=== PATIENT | female | born 1985 | race Caucasian/White ===

== ENCOUNTER → 2018-09-13 10:15 | Outpatient (CLI) | payer OTHER, SELFPAY ==
[2018-09-13 11:15] LABS: Add Manual Diff / Slide Review NO; Basophils Absolute Auto 100 /uL (0-100); Eosinophils Absolute Auto 400 /uL (0-450); Eosinophils Percent Auto 5.2 % (2-4); Hematocrit 35.6 % (36-46); Hemoglobin 12.1 g/dL (12.0-16.0); Lymphocytes Absolute Auto 2800 /uL (1100-4500); Lymphocytes Percent Auto 35.3 % (25-40); Mean Corpuscular Hemoglobin 29.5 PG (26-34); Mean Corpuscular Volume 86.8 fL (80-100); Monocytes Absolute Auto 500 /uL (0-900); Monocytes Percent Auto 6.9 % (3-14); Neutrophils Absolute Auto 4100 /uL (1500-7000); Neutrophils Percent Auto 51.6 % (50-75); Platelet Count 392 X10^3/uL (150-400); Red Cell Distribution Width 13.3 % (11.6-14.8); White Blood Cell Count 7.9 X10^3/uL (4.5-11.0)
[2018-09-13 11:39] LABS: Alanine Aminotransferase 15 IU/L (9-52); Albumin 4.1 g/dL (3.5-5.0); Albumin Globulin Ratio 1.3 (1.0-2.8); Alkaline Phosphatase 75 U/L (38-126); Aspartate Aminotransferase 17 IU/L (14-36); BUN Creatinine Ratio 13.3 (6-22); Bilirubin Total 0.5 mg/dL (0.2-1.3); Blood Urea Nitrogen 8 mg/dL (7-17); Carbon Dioxide 30 mmol/L (22-32); Chloride 103 mmol/L (98-107); Cholesterol 184 mg/dL (140-199); Estimated Glomerular Filt Rate > 60.0 mL/min (>60); Globulin 3.2 g/dL (1.7-4.1); Glucose 92 mg/dL (70-100); HDL Cholesterol 40 mg/dL (40-60); HEMOLYSIS < 15 (0-50); LDL Cholesterol Calculated 116 mg/dL (<100); Sodium 140 mmol/L (137-145); Total Protein 7.3 g/dL (6.3-8.2); Triglycerides 138 mg/dL (35-150)
[2018-09-13 12:08] LABS: TSH w/ Reflex to FT4 4.31 uIU/mL (0.47-4.68)
== END ==
PROVIDERS: PCP Nurse Practitioner; Visit Provider Nurse Practitioner
DX: F32.9 Major depressive disorder, single episode, unspecified (principal); F41.9 Anxiety disorder, unspecified; G47.00 Insomnia, unspecified; Z00.00 Encounter for general adult medical examination without abnormal findings
CPT/HCPCS: 36415; 80053; 80061; 84443; 85025

== ENCOUNTER → 2019-08-01 16:42 | Outpatient (CLI) | payer OTHER, SELFPAY | PROVIDERS: PCP Nurse Practitioner; Referring Provider Nurse Practitioner; Visit Provider Nurse Practitioner | DX: M79.602 Pain in left arm (principal); Z53.8 Procedure and treatment not carried out for other reasons; M79.89 Other specified soft tissue disorders; Q27.9 Congenital malformation of peripheral vascular system, unspecified ==

== ENCOUNTER 2020-01-08 15:15 | Outpatient (RCR) | payer OTHER, SELFPAY ==
--- NOTE | 2019-11-04 16:45 | PT.OIE ---
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 Physical Therapy Initial Evaluation PT-OP-A Visit Information Start: 11/04/19 17:43 Freq: Status: Active Protocol: Document 11/04/19 16:00 DCW (Rec: 11/04/19 17:57 [facility] [id number]) Out-Patient Physical Therapy Visit Information Visit Information Visit Type Initial Evaluation Visit Start Time 16:00 Visit Stop Time 16:35 Total Visit Minutes 35 Visit Number 1 Number of WRAP KNITTING MACHINE OPERATOR Visits 0 Evaluation Information Evaluation Date 11/04/19 PT-OP-B Current Condition Start: 11/04/19 17:43 Freq: Status: Active Protocol: Document 11/04/19 16:00 DCW (Rec: 11/04/19 17:57 [facility] [id number]) Current Condition History of Current Condition Onset Date several months Current Complaints Left arm pain, weakness History of Current Condition Pt is a 34 year old female reporting a several month history of left arm pain. 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 Pt reports the pain is worsening, and has started to limit her ability to participate in home and work activities. 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 Pt notes recent increase in dropping items and pain with gripping. Pt reports she has tried a bunch of different meds, none of which seem to help, cold makes it worse. Heat and compression help a little, but not really. Pt is seeing a vascular surgeon on , and she is hopeful this will give her some options to have her malformation corrected. Future Testing and Treatments Planned Vascular surgeon consult Treatment Goals Patient/Caregiver Goals I want to alleviate some of the pain, and improve the strength. 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 Patient Reported Progress Worse Patient Questionnaires Quick Dash- Upper Extremity Quick Dash UE Score 61.36% Quick Dash UE Impairment 60 to 79% Impaired (Score 60- 79) OP-PT Pain Assessment Pain Assessment Grid Paper Pain Assessment Grid Completed Yes Location Left Arm Intensity 8 Scale Used Numeric (0 - 10) Variations/Patterns 6-8/10 PT-OP-F Manual Assessment Start: 11/04/19 17:43 Freq: Status: Active Protocol: Document 11/04/19 16:00 DCW (Rec: 11/05/19 12:50 DCW [id number]) Manual Assessments Soft Tissue Assessment Soft Tissue Mobility Assessment Tenderness to palpation 3/4: Wincing and withdraw along entirety of arm from left elbow distally to MCP joints. Hypertonia in forearm. Edema and varicose veins along distal forearm Joint Mobility Assessment Joint Mobility Assessment Wrist stiffness secondary to pain PT-OP-J Posture/Palpation/Skin Start: 11/04/19 17:43 Freq: Status: Active Protocol: Document 11/04/19 16:00 DCW (Rec: 11/05/19 12:50 DCW [id number]) Skin Assessment Circumference Measurement 3 Location 5 cm Distal to Left wrist joint Measurement (Centimeters) 22.4 Comments 5 cm Distal to Right wrist joint = 22.0 2 Location 5 cm Proximal to Left wrist joint Measurement (Centimeters) 22.0 Comments 5 cm Proximal to Right wrist joint = 20.8 1 Location Left wrist joint Measurement (Centimeters) 17.7 Comments Right wrist joint = 16.5 PT-OP-K Range of Motion Start: 11/04/19 17:43 Freq: Status: Active Protocol: Document 11/04/19 16:00 DCW (Rec: 11/05/19 12:50 DCW [id number]) Elbow/Forearm Range of Motion Elbow/Forearm Left Active Pronation (degrees) 90 Supination (degrees) 30 Wrist Goniometric Range of Motion Wrist Right Flexion Active (degrees) 55 Extension Active (degrees) 60 Ulnar Deviation Active (degrees) 40 Radial Deviation Active (degrees) 25 Left Flexion Active (degrees) 30 Extension Active (degrees) 60 Ulnar Deviation Active (degrees) 30 Radial Deviation Active (degrees) 20 PT-OP-M Strength Start: 11/04/19 17:43 Freq: Status: Active Protocol: Document 11/04/19 16:00 DCW (Rec: 11/05/19 12:50 DCW [id number]) Wrist Strength Wrist Manual Muscle Testing Right Flexion (C7) 5 Normal Extension (C6) 5 Normal Ulnar Deviation 5 Normal Radial Deviation 5 Normal Left Flexion (C7) 3 Fair Extension (C6) 3 Fair Ulnar Deviation 3- Fair- Radial Deviation 3- Fair- Hand Trial Management Associate/Pinch Strength Hand Dominance Hand Dominance Right Hand Strength Right Trial Management Associate (lbs) 61.7 Comments 3-trial average (60 lbs, 65 lbs, 60 lbs). Left Trial Management Associate (lbs) 23.3 Comments 3-trial average (25 lbs, 25 lbs, 20 lbs). PT-OP-Q Treatments Start: 11/04/19 17:43 Freq: Status: Active Protocol: Document 11/04/19 16:00 DCW (Rec: 11/05/19 12:50 [facility] [id number]) Therapeutic Exercises Sitting Exercises 1 Sitting Exercise Name Thera Putty - flexion (full fist, individual) extension Side left PT-OP-T Assessment and Plan Start: 11/04/19 17:43 Freq: Status: Active Protocol: Document 11/04/19 16:00 DCW (Rec: 11/05/19 12:50 DCW [id number]) Physical Therapy Assessment Rehab Potential Rehabilitation Potential Fair Evaluation Complexity Number of Personal Factors/Comorbidities 3 or More Number of Body Systems Impaired 1-2 Clinical Presentation at Evaluation Evolving Impairments Impairments Activity Tolerance,Functional Activities,Functional Mobility ,Pain,ROM,Soft Tissue Mobility ,Strength Goals Three Impairment Pain of 8/10 causes inablity to participate in 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 LTG Duration 01/04/20 Two Impairment Left vp treasurer strength (23.3 lbs) significantly less than right (61.7 lbs) It Security Project Manager Goal (LTG) Increased left vp treasurer strength to a three trial average of > 45 lbs to ensure pt's ability to picj up household items without dropping them LTG Duration 01/04/20 One Impairment Pt does not have an appropriate home exercise program Short Term Goal (STG) Pt to be independent and ocmpliant with an appropriate HEP STG Duration 12/04/19 Assessment Summary Assessment Pt presents with left arm pain , edema, and decreased ROM secondary to a congenital venous malformation. Pt demonstrates weakness in both the wrist and her vp treasurer, although this may just be a secondary symptoms due to her pain. Pt is scheduled for a consultation with a vascular surgeon prior to her next PT visit, which may change the planned course of action, however for now skilled therapy should focus on decreasing muscle tone, improving wrist ROM, strengthening wrist and vp treasurer strength, and using modalities to improve pain levels. Physical Therapy Plan Frequency and Duration Frequency of Treatment 2x/Week Duration of Treatment 10 weeks Plan of Care Start Date 11/04/19 Plan of Care End Date 01/13/20 Therapeutic Interventions Therapeutic Interventions Home Exercise Program,Joint Mobilizations,Manual Therapy, Patient/Caregiver Education, Self-Care/Home Management,Soft Tissue Mobilization, Therapeutic Activities, Therapeutic Exercises Modalities Cold Pack/Ice Massage,Electric Stimulation,Hot Packs, Paraffin Bath,Ultrasound Next Visit Focus/Plan Next Note Type Treatment Note Next Visit Plan STM, flexibility, vp treasurer strengthening, Pariffin Bath
--- NOTE | 2019-11-04 16:45 | PT.OPPOC ---
Physical, Occupational & Speech Therapy At [facility] Current Diagnoses Stiffness of left wrist, not elsewhere classified (11/04/19) Muscle weakness (generalized) (11/04/19) Pain in left arm (11/04/19) Congenital malformation of circulatory system, unspecified (11/04/19) Visit Care Team Role Provider Type KAREN Ely Attending Provider Advanced Corpsman Primary Care Provider Referring Provider Specialty: Family Practice Address: [address] [place] [address], [facility] Email: [email or web address] Plan Of Care PT-OP-T Assessment and Plan Start: 11/04/19 17:43 Freq: Status: Active Protocol: Document 11/04/19 16:00 DCW (Rec: 11/05/19 12:50 DCW [id number]) Physical Therapy Assessment Rehab Potential Rehabilitation Potential Fair Evaluation Complexity Number of Personal Factors/Comorbidities 3 or More Number of Body Systems Impaired 1-2 Clinical Presentation at Evaluation Evolving Impairments Impairments Activity Tolerance,Functional Activities,Functional Mobility ,Pain,ROM,Soft Tissue Mobility ,Strength Goals Three Impairment Pain of 8/10 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 LTG Duration 01/04/20 Two Impairment Left car salter strength (23.3 lbs) significantly less than right (61.7 lbs) Sdv Pilot/Navigator/Dds Operator Goal (LTG) Increased left car salter strength to a three trial average of > 45 lbs to ensure pt's ability to picj up household items without dropping them LTG Duration 01/04/20 One Impairment Pt does not have an appropriate home exercise program Short Term Goal (STG) Pt to be independent and ocmpliant with an appropriate HEP STG Duration 12/04/19 Assessment Summary Assessment Pt presents with left arm pain , edema, and decreased ROM secondary to a congenital venous malformation. Pt demonstrates weakness in both the wrist and her car salter, although this may just be a secondary symptoms due to her pain. Pt is scheduled for a consultation with a vascular surgeon prior to her next PT visit, which may change the planned course of action, however for now skilled therapy should focus on decreasing muscle tone, improving wrist ROM, strengthening wrist and car salter strength, and using modalities to improve pain levels. Physical Therapy Plan Frequency and Duration Frequency of Treatment 2x/Week Duration of Treatment 10 weeks Plan of Care Start Date 11/04/19 Plan of Care End Date 01/13/20 Therapeutic Interventions Therapeutic Interventions Home Exercise Program,Joint Mobilizations,Manual Therapy, Patient/Caregiver Education, Self-Care/Home Management,Soft Tissue Mobilization, Therapeutic Activities, Therapeutic Exercises Modalities Cold Pack/Ice Massage,Electric Stimulation,Hot Packs, Paraffin Bath,Ultrasound Next Visit Focus/Plan Next Note Type Treatment Note Next Visit Plan STM, flexibility, car salter strengthening, Pariffin Bath Plan of Care Dates Plan of Care Start Date 11/04/19 Plan of Care End Date 01/13/20 Electronically Signed by: Harsha Eubanks, PT 11/05/19 2630 Please Sign and Return: I have reviewed this Plan of Care and certify that the skilled therapy services above are required to meet the patient?s needs. Physician Signature Date Printed Name and Credentials Clinical Instructor Signature Printed Name and Credentials
--- NOTE | 2019-11-08 08:18 | PT.OTN ---
Current Diagnoses Stiffness of left wrist, not elsewhere classified (11/08/19) Muscle weakness (generalized) (11/08/19) Pain in left arm (11/08/19) Congenital malformation of circulatory system, unspecified (11/08/19) Physical Therapy Treatment Note PT-OP-A Visit Information Start: 11/04/19 17:43 Freq: Status: Active Protocol: Document 11/08/19 07:29 SP (Rec: 11/08/19 09:16 SP [id number]) Out-Patient Physical Therapy Visit Information Visit Information Visit Type Treatment Note Visit Start Time 07:30 Visit Stop Time 08:18 Total Visit Minutes 48 Visit Number 2 Number of CLINIC CHARGE NURSE Visits 1 PT-OP-B Current Condition Start: 11/04/19 17:43 Freq: Status: Active Protocol: Document 11/04/19 16:00 DCW (Rec: 11/04/19 17:57 DCW [id number]) Current Condition History of Current Condition Onset Date several months Current Complaints Left arm pain, weakness History of Current Condition Pt is a 34 year old female reporting a several month history of left arm pain. 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 Pt reports the pain is worsening, and has started to limit her ability to participate in home and work activities. 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 Pt notes recent increase in dropping items and pain with gripping. Pt reports she has tried a bunch of different meds, none of which seem to help, cold makes it worse. Heat and compression help a little, but not really. Pt is seeing a vascular surgeon on , and she is hopeful this will give her some options to have her malformation corrected. Future Testing and Treatments Planned Vascular surgeon consult Treatment Goals Patient/Caregiver Goals I want to alleviate some of the pain, and improve the strength. PT-OP-C Subjective Start: 11/04/19 17:43 Freq: Status: Active Protocol: Document 11/08/19 07:29 SP (Rec: 11/08/19 09:16 SP [id number]) OP-PT Subjective Patient Comments Patient Comments Pt reported saw vascular surgeon and stated referring her to more specified pediatric vascular hand surgeon near [place]. Waiting to see when referral is complete to schedule further appt assessments. Pt reports 11/29 always. Surgeon provided her compression sleeve to wear. PT-OP-F Manual Assessment Start: 11/04/19 17:43 Freq: Status: Active Protocol: Document 11/04/19 16:00 DCW (Rec: 11/05/19 12:50 DCW [id number]) Manual Assessments Soft Tissue Assessment Soft Tissue Mobility Assessment Tenderness to palpation 3/4: Wincing and withdraw along entirety of arm from left elbow distally to MCP joints. Hypertonia in forearm. Edema and varicose veins along distal forearm Joint Mobility Assessment Joint Mobility Assessment Wrist stiffness secondary to pain PT-OP-J Posture/Palpation/Skin Start: 11/04/19 17:43 Freq: Status: Active Protocol: Document 11/04/19 16:00 DCW (Rec: 11/05/19 12:50 DCW [id number]) Skin Assessment Circumference Measurement 3 Location 5 cm Distal to Left wrist joint Measurement (Centimeters) 22.4 Comments 5 cm Distal to Right wrist joint = 22.0 2 Location 5 cm Proximal to Left wrist joint Measurement (Centimeters) 22.0 Comments 5 cm Proximal to Right wrist joint = 20.8 1 Location Left wrist joint Measurement (Centimeters) 17.7 Comments Right wrist joint = 16.5 PT-OP-K Range of Motion Start: 11/04/19 17:43 Freq: Status: Active Protocol: Document 11/04/19 16:00 DCW (Rec: 11/05/19 12:50 DCW [id number]) Elbow/Forearm Range of Motion Elbow/Forearm Left Active Pronation (degrees) 90 Supination (degrees) 30 Wrist Goniometric Range of Motion Wrist Right Flexion Active (degrees) 55 Extension Active (degrees) 60 Ulnar Deviation Active (degrees) 40 Radial Deviation Active (degrees) 25 Left Flexion Active (degrees) 30 Extension Active (degrees) 60 Ulnar Deviation Active (degrees) 30 Radial Deviation Active (degrees) 20 PT-OP-M Strength Start: 11/04/19 17:43 Freq: Status: Active Protocol: Document 11/04/19 16:00 DCW (Rec: 11/05/19 12:50 DCW [id number]) Wrist Strength Wrist Manual Muscle Testing Right Flexion (C7) 5 Normal Extension (C6) 5 Normal Ulnar Deviation 5 Normal Radial Deviation 5 Normal Left Flexion (C7) 3 Fair Extension (C6) 3 Fair Ulnar Deviation 3- Fair- Radial Deviation 3- Fair- Hand Helper Steel Fabrication/Pinch Strength Hand Dominance Hand Dominance Right Hand Strength Right Helper Steel Fabrication (lbs) 61.7 Comments 3-trial average (60 lbs, 65 lbs, 60 lbs). Left Helper Steel Fabrication (lbs) 23.3 Comments 3-trial average (25 lbs, 25 lbs, 20 lbs). PT-OP-Q Treatments Start: 11/04/19 17:43 Freq: Status: Active Protocol: Document 11/08/19 07:29 SP (Rec: 11/08/19 09:16 SP [id number]) Therapeutic Exercises Sitting Exercises AROM finger extension Sitting Exercise Name 1-5 MTP Side left Resistance AROM and rubber band Reps/Minutes all and individual finger. 1 Sitting Exercise Name Thera Putty - flexion (full fist, individual) extension Side left Manual Therapy Treatment Joint Mobilizations carpal, MTP, IT, DIP Joint L MTP 1-5 Direction AP, PA, rotation Grade I Body Position seated Comments gentle ROM PT-OP-R Modalities Start: 11/04/19 17:45 Freq: Status: Active Protocol: Document 11/08/19 07:29 SP (Rec: 11/08/19 09:16 SP [id number]) Paraffin Bath Treatment Left Hand Treatment Technique Dip-immersion Number Wax Layers (layers) 5 Duration (minutes) 8 Patient Tolerance Good PT-OP-T Assessment and Plan Start: 11/04/19 17:43 Freq: Status: Active Protocol: Document 11/08/19 07:29 SP (Rec: 11/08/19 09:16 SP [id number]) Physical Therapy Assessment Goals Three Impairment Pain of 8/10 causes inablity to 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 LTG Duration 01/04/20 Two Impairment Left green house manager strength (23.3 lbs) significantly less than right (61.7 lbs) Back Up Machine Operator Goal (LTG) Increased left green house manager strength to a three trial average of > 45 lbs to ensure pt's ability to picj up household items without dropping them LTG Duration 11/14/20 One Impairment Pt does not have an appropriate home exercise program Short Term Goal (STG) Pt to be independent and ocmpliant with an appropriate HEP STG Duration 12/04/19 Assessment Summary Assessment Reviewed HEP, initiated finger ext AROM and lumbrical AROM with no increase in pain. Pt reported carpal and MTP mobs felt good, no adverse pain. Pt responded well to parafin bath, feels nice. Physical Therapy Plan Frequency and Duration Frequency of Treatment 2x/Week Duration of Treatment 10 weeks Plan of Care Start Date 11/04/19 Plan of Care End Date 01/13/20 Therapeutic Interventions Therapeutic Interventions Home Exercise Program,Joint Mobilizations,Manual Therapy, Patient/Caregiver Education, Self-Care/Home Management,Soft Tissue Mobilization, Therapeutic Activities, Therapeutic Exercises Modalities Cold Pack/Ice Massage,Electric Stimulation,Hot Packs, Paraffin Bath,Ultrasound Next Visit Focus/Plan Next Note Type Treatment Note Next Visit Plan Assess response to last tx: manual, HEP review, parafin bath. Continue per PT POC: STM, flexibility, green house manager strengthening, Pariffin Bath
--- NOTE | 2019-11-12 16:21 | PT-OP ANOTE ---
No show on 11/12/19
--- NOTE | 2019-11-15 08:18 | PT.OTN ---
Current Diagnoses Stiffness of left wrist, not elsewhere classified (11/15/19) Muscle weakness (generalized) (11/15/19) Pain in left arm (11/15/19) Congenital malformation of circulatory system, unspecified (11/15/19) Physical Therapy Treatment Note PT-OP-A Visit Information Start: 11/04/19 17:43 Freq: Status: Active Protocol: Document 11/15/19 07:27 SP (Rec: 11/15/19 12:12 SP [id number]) Out-Patient Physical Therapy Visit Information Visit Information Visit Type Treatment Note Visit Start Time 07:30 Visit Stop Time 08:18 Total Visit Minutes 48 Visit Number 45 Number of QUAL RESEARCH MANAGER Visits 2 PT-OP-B Current Condition Start: 11/04/19 17:43 Freq: Status: Active Protocol: Document 11/04/19 16:00 DCW (Rec: 11/04/19 17:57 DCW [id number]) Current Condition History of Current Condition Onset Date several months Current Complaints Left arm pain, weakness History of Current Condition Pt is a 34 year old female reporting a several month history of left arm pain. 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 Pt reports the pain is worsening, and has started to limit her ability to participate in home and work activities. 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 Pt notes recent increase in dropping items and pain with gripping. Pt reports she has tried a bunch of different meds, none of which seem to help, cold makes it worse. Heat and compression help a little, but not really. Pt is seeing a vascular surgeon on , and she is hopeful this will give her some options to have her malformation corrected. Future Testing and Treatments Planned Vascular surgeon consult Treatment Goals Patient/Caregiver Goals I want to alleviate some of the pain, and improve the strength. PT-OP-C Subjective Start: 11/04/19 17:43 Freq: Status: Active Protocol: Document 11/15/19 07:27 SP (Rec: 11/15/19 12:12 SP [id number]) OP-PT Subjective Patient Comments Patient Comments Pt responded well to last tx, noted able to do dishes with little less pain and mobilty with grasping things. Patient Reported Progress Improving PT-OP-F Manual Assessment Start: 11/04/19 17:43 Freq: Status: Active Protocol: Document 11/04/19 16:00 DCW (Rec: 11/05/19 12:50 DCW [id number]) Manual Assessments Soft Tissue Assessment Soft Tissue Mobility Assessment Tenderness to palpation 3/4: Wincing and withdraw along entirety of arm from left elbow distally to MCP joints. Hypertonia in forearm. Edema and varicose veins along distal forearm Joint Mobility Assessment Joint Mobility Assessment Wrist stiffness secondary to pain PT-OP-J Posture/Palpation/Skin Start: 11/04/19 17:43 Freq: Status: Active Protocol: Document 11/04/19 16:00 DCW (Rec: 11/05/19 12:50 DCW [id number]) Skin Assessment Circumference Measurement 3 Location 5 cm Distal to Left wrist joint Measurement (Centimeters) 22.4 Comments 5 cm Distal to Right wrist joint = 22.0 2 Location 5 cm Proximal to Left wrist joint Measurement (Centimeters) 22.0 Comments 5 cm Proximal to Right wrist joint = 20.8 1 Location Left wrist joint Measurement (Centimeters) 17.7 Comments Right wrist joint = 16.5 PT-OP-K Range of Motion Start: 11/04/19 17:43 Freq: Status: Active Protocol: Document 11/04/19 16:00 DCW (Rec: 11/05/19 12:50 DCW [id number]) Elbow/Forearm Range of Motion Elbow/Forearm Left Active Pronation (degrees) 90 Supination (degrees) 30 Wrist Goniometric Range of Motion Wrist Right Flexion Active (degrees) 55 Extension Active (degrees) 60 Ulnar Deviation Active (degrees) 40 Radial Deviation Active (degrees) 25 Left Flexion Active (degrees) 30 Extension Active (degrees) 60 Ulnar Deviation Active (degrees) 30 Radial Deviation Active (degrees) 20 PT-OP-M Strength Start: 11/04/19 17:43 Freq: Status: Active Protocol: Document 11/04/19 16:00 DCW (Rec: 11/05/19 12:50 DCW [id number]) Wrist Strength Wrist Manual Muscle Testing Right Flexion (C7) 5 Normal Extension (C6) 5 Normal Ulnar Deviation 5 Normal Radial Deviation 5 Normal Left Flexion (C7) 3 Fair Extension (C6) 3 Fair Ulnar Deviation 3- Fair- Radial Deviation 3- Fair- Hand Title Examiner/Pinch Strength Hand Dominance Hand Dominance Right Hand Strength Right Title Examiner (lbs) 61.7 Comments 3-trial average (60 lbs, 65 lbs, 60 lbs). Left Title Examiner (lbs) 23.3 Comments 3-trial average (25 lbs, 25 lbs, 20 lbs). PT-OP-Q Treatments Start: 11/04/19 17:43 Freq: Status: Active Protocol: Document 11/15/19 07:27 SP (Rec: 11/15/19 12:12 SP [id number]) Therapeutic Exercises Sitting Exercises wrist flexion /ext stretch Reps/Minutes 20 x2 each direction Comments cued totolerant range and feel nice stretch benefits wrist flexion/ ext Resistance AROM Reps/Minutes x10 each direction Comments extension 2/10 posterior mid forearm, flexion 3-4/10 mid- prox forearm- roc Finger flexion Sitting Exercise Name MTP, IP, DIP 1-5 Side left Resistance AROM and rubber band Reps/Minutes x10 each AROM finger extension Sitting Exercise Name 1-5 MTP Side left Resistance AROM and rubber band Equipment Used x10 each Reps/Minutes all and individual finger. Manual Therapy Treatment Soft Tissue Mobilization MF glide forearm flex/ ext Body Location superficial glide forearm hand retrograde, CET/ CFT attachment Mobilization Type Cross-Friction,Myofascial Release,Sustained Pressure Intensity/Depth Superficial Body Position Sitting Comments MWM for self with other UE. Joint Mobilizations carpal, MTP, IT, DIP Joint L MTP 1-5, carpals, distal radius & ulna Direction AP, PA, rotation Grade I Body Position seated Comments gentle ROM PT-OP-R Modalities Start: 11/04/19 17:45 Freq: Status: Active Protocol: Document 11/15/19 07:27 SP (Rec: 11/15/19 12:12 SP [id number]) Paraffin Bath Treatment Left Hand Treatment Technique Dip-immersion Number Wax Layers (layers) 8 Duration (minutes) 8 Patient Tolerance Good PT-OP-T Assessment and Plan Start: 11/04/19 17:43 Freq: Status: Active Protocol: Document 11/15/19 07:27 SP (Rec: 11/15/19 12:12 SP [id number]) Physical Therapy Assessment Goals Three Impairment Pain of 8/10 causes inablity to participate 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 LTG Duration 01/04/20 Two Impairment Left ladder operator strength (23.3 lbs) significantly less than right (61.7 lbs) [facility] Goal (LTG) Increased left ladder operator strength to a three trial average of > 45 lbs to ensure pt's ability to picj up household items without dropping them LTG Duration 01/04/20 One Impairment Pt does not have an appropriate home exercise program Short Term Goal (STG) Pt to be independent and ocmpliant with an appropriate HEP STG Duration 12/04/19 Assessment Summary Assessment Pt reported little discomfort during wrist flexion, tiring during finger exercises but feels is helpful. Sensitive to pressure over forearm, gentle glides and education on self application if tolerant benefits. AROM wrist added today and DIP, IP increase AAROM wtih other UE assist. Pt is still working on referrals to hand specialist orthopedic and pediatric vascular surgeon for further assessment . QUAL RESEARCH MANAGER gave purple sheet to add more appts and suggested would be beneficial to have an appt with PT specialized in lymphedema Nydia here in clinic if unable to see primary PT, schedule full. PT feel is progressisng and seeing PT benefits. Physical Therapy Plan Frequency and Duration Frequency of Treatment 2x/Week Duration of Treatment 10 weeks Plan of Care Start Date 11/04/19 Plan of Care End Date 01/13/20 Therapeutic Interventions Therapeutic Interventions Home Exercise Program,Joint Mobilizations,Manual Therapy, Patient/Caregiver Education, Self-Care/Home Management,Soft Tissue Mobilization, Therapeutic Activities, Therapeutic Exercises Modalities Cold Pack/Ice Massage,Electric Stimulation,Hot Packs, Paraffin Bath,Ultrasound Next Visit Focus/Plan Next Note Type Treatment Note Next Visit Plan Assess response to last tx: manual, HEP review and added finger flexion TB and wrist flex/ ext and self manual if warants at home, parafin bath. Continue per PT POC: STM, flexibility, ladder operator strengthening, Pariffin Bath
--- NOTE | 2019-11-19 16:48 | PT.OTN ---
Current Diagnoses Stiffness of left wrist, not elsewhere classified (11/19/19) Muscle weakness (generalized) (11/19/19) Pain in left arm (11/19/19) Congenital malformation of circulatory system, unspecified (11/19/19) Physical Therapy Treatment Note PT-OP-A Visit Information Start: 11/04/19 17:43 Freq: Status: Active Protocol: Document 11/19/19 16:00 DCW (Rec: 11/19/19 16:48 DCW [id number]) Out-Patient Physical Therapy Visit Information Visit Information Visit Type Treatment Note Visit Start Time 16:00 Visit Stop Time 16:45 Total Visit Minutes 45 Visit Number 4 Number of RERECORDING MIXER Visits 0 Evaluation Information Evaluation Date 11/04/19 PT-OP-B Current Condition Start: 11/04/19 17:43 Freq: Status: Active Protocol: Document 11/04/19 16:00 DCW (Rec: 11/04/19 17:57 DCW [id number]) Current Condition History of Current Condition Onset Date several months Current Complaints Left arm pain, weakness History of Current Condition Pt is a 34 year old female reporting a several month history of left arm pain. 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 Pt reports the pain is worsening, and has started to limit her ability to participate in home and work activities. 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 Pt notes recent increase in dropping items and pain with gripping. Pt reports she has tried a bunch of different meds, none of which seem to help, cold makes it worse. Heat and compression help a little, but not really. Pt is seeing a vascular surgeon on , and she is hopeful this will give her some options to have her malformation corrected. Future Testing and Treatments Planned Vascular surgeon consult Treatment Goals Patient/Caregiver Goals I want to alleviate some of the pain, and improve the strength. PT-OP-C Subjective Start: 11/04/19 17:43 Freq: Status: Active Protocol: Document 11/19/19 16:00 DCW (Rec: 11/19/19 16:48 DCW [id number]) OP-PT Subjective Patient Comments Patient Comments Pt reports she isn't really feeling much change in strength and mobility in her hand/wrist. PT-OP-F Manual Assessment Start: 11/04/19 17:43 Freq: Status: Active Protocol: Document 11/04/19 16:00 DCW (Rec: 11/05/19 12:50 DCW [id number]) Manual Assessments Soft Tissue Assessment Soft Tissue Mobility Assessment Tenderness to palpation 3/4: Wincing and withdraw along entirety of arm from left elbow distally to MCP joints. Hypertonia in forearm. Edema and varicose veins along distal forearm Joint Mobility Assessment Joint Mobility Assessment Wrist stiffness secondary to pain PT-OP-J Posture/Palpation/Skin Start: 11/04/19 17:43 Freq: Status: Active Protocol: Document 11/04/19 16:00 DCW (Rec: 11/05/19 12:50 DCW [id number]) Skin Assessment Circumference Measurement 3 Location 5 cm Distal to Left wrist joint Measurement (Centimeters) 22.4 Comments 5 cm Distal to Right wrist joint = 22.0 2 Location 5 cm Proximal to Left wrist joint Measurement (Centimeters) 22.0 Comments 5 cm Proximal to Right wrist joint = 20.8 1 Location Left wrist joint Measurement (Centimeters) 17.7 Comments Right wrist joint = 16.5 PT-OP-K Range of Motion Start: 11/04/19 17:43 Freq: Status: Active Protocol: Document 11/04/19 16:00 DCW (Rec: 11/05/19 12:50 DCW [id number]) Elbow/Forearm Range of Motion Elbow/Forearm Left Active Pronation (degrees) 90 Supination (degrees) 30 Wrist Goniometric Range of Motion Wrist Right Flexion Active (degrees) 55 Extension Active (degrees) 60 Ulnar Deviation Active (degrees) 40 Radial Deviation Active (degrees) 25 Left Flexion Active (degrees) 30 Extension Active (degrees) 60 Ulnar Deviation Active (degrees) 30 Radial Deviation Active (degrees) 20 PT-OP-M Strength Start: 11/04/19 17:43 Freq: Status: Active Protocol: Document 11/04/19 16:00 DCW (Rec: 11/05/19 12:50 DCW [id number]) Wrist Strength Wrist Manual Muscle Testing Right Flexion (C7) 5 Normal Extension (C6) 5 Normal Ulnar Deviation 5 Normal Radial Deviation 5 Normal Left Flexion (C7) 3 Fair Extension (C6) 3 Fair Ulnar Deviation 3- Fair- Radial Deviation 3- Fair- Hand Car Repossessor/Pinch Strength Hand Dominance Hand Dominance Right Hand Strength Right Car Repossessor (lbs) 61.7 Comments 3-trial average (60 lbs, 65 lbs, 60 lbs). Left Car Repossessor (lbs) 23.3 Comments 3-trial average (25 lbs, 25 lbs, 20 lbs). PT-OP-Q Treatments Start: 11/04/19 17:43 Freq: Status: Active Protocol: Document 11/19/19 16:00 DCW (Rec: 11/19/19 16:48 DCW [id number]) Therapeutic Exercises Sitting Exercises 6 Sitting Exercise Name Ulnar/Radial Deviation Equipment Used Hammer 5 Sitting Exercise Name Supination/Pronation Equipment Used Hammer 4 Sitting Exercise Name Flexbar - Oscillation Resistance Red 3 Sitting Exercise Name Flexbar - Twist Resistance Red 2 Sitting Exercise Name Flexbar - Flexion Resistance Red Finger flexion Sitting Exercise Name Didgi-Flex Side left Resistance 5 lbs - Green Manual Therapy Treatment Joint Mobilizations carpal, MTP, IT, DIP Joint L MTP 1-5, carpals, distal radius & ulna Direction AP, PA, rotation Grade I Body Position seated Comments gentle ROM Manual Traction Carpal Details Carpal traction Body Position Sitting PT-OP-R Modalities Start: 11/04/19 17:45 Freq: Status: Active Protocol: Document 11/19/19 16:00 DCW (Rec: 11/19/19 16:48 DCW [id number]) Paraffin Bath Treatment Left Hand Treatment Technique Dip-immersion Number Wax Layers (layers) 5 Duration (minutes) 8 Patient Tolerance Good PT-OP-T Assessment and Plan Start: 11/04/19 17:43 Freq: Status: Active Protocol: Document 11/19/19 16:00 DCW (Rec: 11/19/19 16:48 DCW [id number]) Physical Therapy Assessment Goals Three Impairment Pain of 8/10 causes 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 LTG Duration 01/04/20 Two Impairment Left fire and explosion investigator strength (23.3 lbs) significantly less than right (61.7 lbs) Paper Folding Machine Operator Goal (LTG) Increased left fire and explosion investigator strength to a three trial average of > 45 lbs to ensure pt's ability to picj up household items without dropping them LTG Duration 01/04/20 One Impairment Pt does not have an appropriate home exercise program Short Term Goal (STG) Pt to be independent and ocmpliant with an appropriate HEP STG Duration 12/04/19 Assessment Summary Assessment Pt had some good results with manual joint mobs/traction, but overall unsure as of now how effective PT has been. Between waiting for appointment with Vascular surgeon, lack of progress, and high co-pay, pt unsure if she wants to continue with therapy as scheduled. Therapist and patient decided to cancel next appointment, however both feel it would be good to see therapist she is scheduled with next week who specializes in lymphedema to help with drainage. Physical Therapy Plan Frequency and Duration Frequency of Treatment 2x/Week Duration of Treatment 10 weeks Plan of Care Start Date 11/04/19 Plan of Care End Date 01/13/20 Therapeutic Interventions Therapeutic Interventions Home Exercise Program,Joint Mobilizations,Manual Therapy, Patient/Caregiver Education, Self-Care/Home Management,Soft Tissue Mobilization, Therapeutic Activities, Therapeutic Exercises Modalities Cold Pack/Ice Massage,Electric Stimulation,Hot Packs, Paraffin Bath,Ultrasound Next Visit Focus/Plan Next Note Type Treatment Note Next Visit Plan Assess response to last tx: manual, HEP review and added finger flexion TB and wrist flex/ ext and self manual if warants at home, parafin bath. Continue per PT POC: STM, flexibility, fire and explosion investigator strengthening, Pariffin Bath
--- NOTE | 2019-11-27 16:09 | PT.OTN ---
Current Diagnoses Stiffness of left wrist, not elsewhere classified (11/27/19) Muscle weakness (generalized) (11/27/19) Pain in left arm (11/27/19) Congenital malformation of circulatory system, unspecified (11/27/19) Physical Therapy Treatment Note PT-OP-A Visit Information Start: 11/04/19 17:43 Freq: Status: Active Protocol: Document 11/27/19 10:29 SAK (Rec: 11/27/19 11:15 SAK [id number]) Out-Patient Physical Therapy Visit Information Visit Information Visit Type Treatment Note Visit Start Time 10:30 Visit Stop Time 11:15 Total Visit Minutes 45 Visit Number 5 Number of ROUTER OPERATOR PIN Visits 0 Evaluation Information Evaluation Date 11/04/19 PT-OP-B Current Condition Start: 11/04/19 17:43 Freq: Status: Active Protocol: Document 11/04/19 16:00 DCW (Rec: 11/04/19 17:57 DCW [id number]) Current Condition History of Current Condition Onset Date several months Current Complaints Left arm pain, weakness History of Current Condition Pt is a 34 year old female reporting a several month history of left arm pain. 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 Pt reports the pain is worsening, and has started to limit her ability to participate in home and work activities. 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 Pt notes recent increase in dropping items and pain with gripping. Pt reports she has tried a bunch of different meds, none of which seem to help, cold makes it worse. Heat and compression help a little, but not really. Pt is seeing a vascular surgeon on , and she is hopeful this will give her some options to have her malformation corrected. Future Testing and Treatments Planned Vascular surgeon consult Treatment Goals Patient/Caregiver Goals I want to alleviate some of the pain, and improve the strength. PT-OP-C Subjective Start: 11/04/19 17:43 Freq: Status: Active Protocol: Document 11/27/19 10:29 SAK (Rec: 11/27/19 11:15 SAK [id number]) OP-PT Subjective Patient Comments Patient Comments Consult with vascular physician just prior to PT visit, going to have appointment to do contrast perfusion test, then make a follow-up appointment with physician. Has inflammation and blood clots in her arm per physician; part of what is making arm hurt. Recommended 81 mg per day aspirin. Also recommendation for compression sleeve fitting in [place]. UE symptoms started when she was 2 y/o and worsened when she hit puberty. 6 month history of increasing left UE swelling, which is variable, reports fairly good this am. Also reports fractured clavice on left when she was 8 y/o. PT-OP-F Manual Assessment Start: 11/04/19 17:43 Freq: Status: Active Protocol: Document 11/04/19 16:00 DCW (Rec: 11/05/19 12:50 DCW [id number]) Manual Assessments Soft Tissue Assessment Soft Tissue Mobility Assessment Tenderness to palpation 3/4: Wincing and withdraw along entirety of arm from left elbow distally to MCP joints. Hypertonia in forearm. Edema and varicose veins along distal forearm Joint Mobility Assessment Joint Mobility Assessment Wrist stiffness secondary to pain PT-OP-J Posture/Palpation/Skin Start: 11/04/19 17:43 Freq: Status: Active Protocol: Document 11/04/19 16:00 DCW (Rec: 11/05/19 12:50 DCW [id number]) Skin Assessment Circumference Measurement 3 Location 5 cm Distal to Left wrist joint Measurement (Centimeters) 22.4 Comments 5 cm Distal to Right wrist joint = 22.0 2 Location 5 cm Proximal to Left wrist joint Measurement (Centimeters) 22.0 Comments 5 cm Proximal to Right wrist joint = 20.8 1 Location Left wrist joint Measurement (Centimeters) 17.7 Comments Right wrist joint = 16.5 PT-OP-K Range of Motion Start: 11/04/19 17:43 Freq: Status: Active Protocol: Document 11/04/19 16:00 DCW (Rec: 11/05/19 12:50 DCW [id number]) Elbow/Forearm Range of Motion Elbow/Forearm Left Active Pronation (degrees) 90 Supination (degrees) 30 Wrist Goniometric Range of Motion Wrist Right Flexion Active (degrees) 55 Extension Active (degrees) 60 Ulnar Deviation Active (degrees) 40 Radial Deviation Active (degrees) 25 Left Flexion Active (degrees) 30 Extension Active (degrees) 60 Ulnar Deviation Active (degrees) 30 Radial Deviation Active (degrees) 20 PT-OP-M Strength Start: 11/04/19 17:43 Freq: Status: Active Protocol: Document 11/04/19 16:00 DCW (Rec: 11/05/19 12:50 DCW [id number]) Wrist Strength Wrist Manual Muscle Testing Right Flexion (C7) 5 Normal Extension (C6) 5 Normal Ulnar Deviation 5 Normal Radial Deviation 5 Normal Left Flexion (C7) 3 Fair Extension (C6) 3 Fair Ulnar Deviation 3- Fair- Radial Deviation 3- Fair- Hand Data Base Administrator/Pinch Strength Hand Dominance Hand Dominance Right Hand Strength Right Data Base Administrator (lbs) 61.7 Comments 3-trial average (60 lbs, 65 lbs, 60 lbs). Left Data Base Administrator (lbs) 23.3 Comments 3-trial average (25 lbs, 25 lbs, 20 lbs). PT-OP-N Lymphedema Start: 11/27/19 16:00 Freq: Status: Active Protocol: Document 11/27/19 10:29 WILDER (Rec: 11/27/19 16:05 [facility] [id number]) Lymphedema Measurements Upper Extremity Circumference Measurements Left Affected MCP 18 cm Wrist 18.3 cm 5 cm From Distal Crease 23.5 cm 10 cm From Distal Crease 26 cm 15 cm From Distal Crease 30 cm 20 cm From Distal Crease 30.4 cm 25 cm From Distal Crease 33.3 cm 30 cm From Distal Crease 36.9 cm 35 cm From Distal Crease 39.2 cm 40 cm From Distal Crease 40 cm Right Unaffected MCP 18.3 cm Wrist 17.9 cm 5 cm From Distal Crease 21.5 cm 10 cm From Distal Crease 24.8 cm 15 cm From Distal Crease 29.4 cm 20 cm From Distal Crease 31.1 cm 25 cm From Distal Crease 34.3 cm 30 cm From Distal Crease 37.9 cm 35 cm From Distal Crease 40.2 cm 40 cm From Distal Crease 42.2 cm PT-OP-Q Treatments Start: 11/04/19 17:43 Freq: Status: Active Protocol: Document 11/27/19 10:29 WILDER (Rec: 11/27/19 16:09 [facility] [id number]) Manual Therapy Treatment Taping 1 Body Location left forearm and hand Treatment Focus edema reduction Type of Tape Kinesio Tape Skin Inspection intact Comments 2 fan strips plus I strip to secure ends. Other Other Manual Treatments circumferential measurements ( see lymphedema section of note ) Fit with size E tubigrip from fingers to axilla, to be used over the top of current elbow length for increased gradient compression Self-Care/Home Management Treatment Education Patient Education Pain Management,Safety Other Education no excessive heat to left UE where compression during day, especially when doing exercises PT-OP-R Modalities Start: 11/04/19 17:45 Freq: Status: Active Protocol: Document 11/27/19 10:29 [facility] (Rec: 11/27/19 11:15 [facility] [id number]) Paraffin Bath Treatment Left Hand Treatment Technique Dip-immersion Number Wax Layers (layers) 5 Duration (minutes) 8 Patient Tolerance Good PT-OP-T Assessment and Plan Start: 11/04/19 17:43 Freq: Status: Active Protocol: Document 11/27/19 10:29 [facility] (Rec: 11/27/19 11:15 [facility] [id number]) Physical Therapy Assessment Goals Three Impairment Pain of 8/10 causes inablity to participate in job requirements as HYDROGENATION OPERATOR Residential Goal (LTG) Pt to demonstrate wrist strength of at least 4-/5 with pain no greater than 3/10 to ensure pt can fully partivipate in all job activities. LTG Duration 01/04/20 Two Impairment Left math and science division chair strength (23.3 lbs) significantly less than right (61.7 lbs) Run Boat Operator Goal (LTG) Increased left math and science division chair strength to a three trial average of > 45 lbs to ensure pt's ability to picj up household items without dropping them LTG Duration 01/04/20 One Impairment Pt does not have an appropriate home exercise program Short Term Goal (STG) Pt to be independent and ocmpliant with an appropriate HEP STG Duration 12/04/19 Assessment Summary Assessment Patient edema appears due to vascular insufficiency left hand and forearm, no edema in upper arm. No tissue fibrosis evident though patient has poor tolerance for palpation. Further vascular testing being scheduled but patient reports clots in her arm per physician, will be starting daily baby aspirin. Feel patient will benefit from use of compression sleeve for gradient compression (ordered by physician), possible lymphatic massage if approved by physician. Physical Therapy Plan Frequency and Duration Frequency of Treatment 2x/Week Duration of Treatment 10 weeks Plan of Care Start Date 11/04/19 Plan of Care End Date 01/13/20 Therapeutic Interventions Therapeutic Interventions Home Exercise Program,Joint Mobilizations,Manual Therapy, Patient/Caregiver Education, Self-Care/Home Management,Soft Tissue Mobilization, Therapeutic Activities, Therapeutic Exercises Modalities Cold Pack/Ice Massage,Electric Stimulation,Hot Packs, Paraffin Bath,Ultrasound Next Visit Focus/Plan Next Note Type Treatment Note Next Visit Plan Assess response to kinesiotape to left UE, increased compression with second layer of tubigrip and if any pain relief. See if patient has scheduled fitting for compression sleeve. Continue PT per POC, with continued emphasis on edema reduction as well, lymphatic massage if approved by physician.
--- NOTE | 2019-12-05 17:34 | PT.OTN ---
Current Diagnoses Stiffness of left wrist, not elsewhere classified (12/05/19) Muscle weakness (generalized) (12/05/19) Pain in left arm (12/05/19) Congenital malformation of circulatory system, unspecified (12/05/19) Physical Therapy Treatment Note PT-OP-A Visit Information Start: 11/04/19 17:43 Freq: Status: Active Protocol: Document 12/05/19 08:14 SAK (Rec: 12/05/19 08:48 SAK [id number]) Out-Patient Physical Therapy Visit Information Visit Information Visit Type Treatment Note Visit Start Time 08:15 Visit Stop Time 09:01 Total Visit Minutes 46 Visit Number 6 Number of ENVIRONMENTAL REMEDIATION SPECIALIST Visits 0 Evaluation Information Evaluation Date 11/04/19 PT-OP-B Current Condition Start: 11/04/19 17:43 Freq: Status: Active Protocol: Document 11/04/19 16:00 DCW (Rec: 11/04/19 17:57 DCW [id number]) Current Condition History of Current Condition Onset Date several months Current Complaints Left arm pain, weakness History of Current Condition Pt is a 34 year old female reporting a several month history of left arm pain. 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 Pt reports the pain is worsening, and has started to limit her ability to participate in home and work activities. 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 Pt notes recent increase in dropping items and pain with gripping. Pt reports she has tried a bunch of different meds, none of which seem to help, cold makes it worse. Heat and compression help a little, but not really. Pt is seeing a vascular surgeon on , and she is hopeful this will give her some options to have her malformation corrected. Future Testing and Treatments Planned Vascular surgeon consult Treatment Goals Patient/Caregiver Goals I want to alleviate some of the pain, and improve the strength. PT-OP-C Subjective Start: 11/04/19 17:43 Freq: Status: Active Protocol: Document 12/05/19 08:14 SAK (Rec: 12/05/19 08:48 SAK [id number]) OP-PT Subjective Patient Comments Patient Comments Perfusion test 12/16/19. States after wearing compression her arm was the smallest she has seen it in a long time and pain was decreased. January 02 appt to see surgeon to discuss options. Still working to get compression sleeve appointment scheduled. Not wearing Tubigrip this am due to knowing PT would work on her arm. Still getting used to wearing compression , helps but also uncomfortable. PT-OP-F Manual Assessment Start: 11/04/19 17:43 Freq: Status: Active Protocol: Document 11/04/19 16:00 DCW (Rec: 11/05/19 12:50 DCW [id number]) Manual Assessments Soft Tissue Assessment Soft Tissue Mobility Assessment Tenderness to palpation 3/4: Wincing and withdraw along entirety of arm from left elbow distally to MCP joints. Hypertonia in forearm. Edema and varicose veins along distal forearm Joint Mobility Assessment Joint Mobility Assessment Wrist stiffness secondary to pain PT-OP-J Posture/Palpation/Skin Start: 11/04/19 17:43 Freq: Status: Active Protocol: Document 11/04/19 16:00 DCW (Rec: 11/05/19 12:50 DCW [id number]) Skin Assessment Circumference Measurement 3 Location 5 cm Distal to Left wrist joint Measurement (Centimeters) 22.4 Comments 5 cm Distal to Right wrist joint = 22.0 2 Location 5 cm Proximal to Left wrist joint Measurement (Centimeters) 22.0 Comments 5 cm Proximal to Right wrist joint = 20.8 1 Location Left wrist joint Measurement (Centimeters) 17.7 Comments Right wrist joint = 16.5 PT-OP-K Range of Motion Start: 11/04/19 17:43 Freq: Status: Active Protocol: Document 11/04/19 16:00 DCW (Rec: 11/05/19 12:50 DCW [id number]) Elbow/Forearm Range of Motion Elbow/Forearm Left Active Pronation (degrees) 90 Supination (degrees) 30 Wrist Goniometric Range of Motion Wrist Right Flexion Active (degrees) 55 Extension Active (degrees) 60 Ulnar Deviation Active (degrees) 40 Radial Deviation Active (degrees) 25 Left Flexion Active (degrees) 30 Extension Active (degrees) 60 Ulnar Deviation Active (degrees) 30 Radial Deviation Active (degrees) 20 PT-OP-M Strength Start: 11/04/19 17:43 Freq: Status: Active Protocol: Document 11/04/19 16:00 DCW (Rec: 11/05/19 12:50 DCW [id number]) Wrist Strength Wrist Manual Muscle Testing Right Flexion (C7) 5 Normal Extension (C6) 5 Normal Ulnar Deviation 5 Normal Radial Deviation 5 Normal Left Flexion (C7) 3 Fair Extension (C6) 3 Fair Ulnar Deviation 3- Fair- Radial Deviation 3- Fair- Hand Ticket Dispatcher/Pinch Strength Hand Dominance Hand Dominance Right Hand Strength Right Ticket Dispatcher (lbs) 61.7 Comments 3-trial average (60 lbs, 65 lbs, 60 lbs). Left Ticket Dispatcher (lbs) 23.3 Comments 3-trial average (25 lbs, 25 lbs, 20 lbs). PT-OP-N Lymphedema Start: 11/27/19 16:00 Freq: Status: Active Protocol: Document 11/27/19 10:29 [facility] (Rec: 11/27/19 16:05 SAK [id number]) Lymphedema Measurements Upper Extremity Circumference Measurements Left Affected MCP 18 cm Wrist 18.3 cm 5 cm From Distal Crease 23.5 cm 10 cm From Distal Crease 26 cm 15 cm From Distal Crease 30 cm 20 cm From Distal Crease 30.4 cm 25 cm From Distal Crease 33.3 cm 30 cm From Distal Crease 36.9 cm 35 cm From Distal Crease 39.2 cm 40 cm From Distal Crease 40 cm Right Unaffected MCP 18.3 cm Wrist 17.9 cm 5 cm From Distal Crease 21.5 cm 10 cm From Distal Crease 24.8 cm 15 cm From Distal Crease 29.4 cm 20 cm From Distal Crease 31.1 cm 25 cm From Distal Crease 34.3 cm 30 cm From Distal Crease 37.9 cm 35 cm From Distal Crease 40.2 cm 40 cm From Distal Crease 42.2 cm PT-OP-Q Treatments Start: 11/04/19 17:43 Freq: Status: Active Protocol: Document 12/05/19 08:14 WILDER (Rec: 12/05/19 08:48 SAK [id number]) Therapeutic Exercises Sitting Exercises 6 Sitting Exercise Name Ulnar/Radial Deviation Equipment Used Hammer 5 Sitting Exercise Name pron/sup Equipment Used Hammer 4 Sitting Exercise Name Flexbar - Oscillation Resistance Red 3 Sitting Exercise Name Flexbar - Twist Resistance Red 2 Sitting Exercise Name Flexbar - Flexion Resistance Red wrist flexion/ ext Resistance AROM Reps/Minutes x10 each direction Finger flexion Sitting Exercise Name Didgi-Flex Side left Resistance 5 lbs - Green AROM finger extension Sitting Exercise Name 1-5 MTP Side left Resistance AROM and rubber band Equipment Used x10 each Reps/Minutes all and individual finger. Manual Therapy Treatment Taping 1 Body Location left forearm and hand Treatment Focus edema reduction Type of Tape Kinesio Tape Skin Inspection intact Comments 2 fan strips plus I strip to secure ends. Other Other Manual Treatments Not measured this date due to not wearing compression for 1 1/2 days. Will measure next session. 2nd set of Tubigrip cut size F MCP to elbow, Size E MCP to axilla. PT-OP-R Modalities Start: 11/04/19 17:45 Freq: Status: Active Protocol: Document 12/05/19 08:14 [facility] (Rec: 12/05/19 17:33 [facility] [id number]) Paraffin Bath Treatment Left Hand Treatment Technique Dip-immersion Number Wax Layers (layers) 8 Duration (minutes) 10 Patient Tolerance Good PT-OP-T Assessment and Plan Start: 11/04/19 17:43 Freq: Status: Active Protocol: Document 12/05/19 08:14 [facility] (Rec: 12/05/19 08:48 [facility] [id number]) Physical Therapy Assessment Goals Three Impairment Pain of 8/10 causes inablity to participate in 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 LTG Duration 01/04/20 Two Impairment Left paper bag press operator strength (23.3 lbs) significantly less than right (61.7 lbs) Prison Goal (LTG) Increased left paper bag press operator strength to a three trial average of > 45 lbs to ensure pt's ability to picj up household items without dropping them LTG Duration 01/04/20 One Impairment Pt does not have an appropriate home exercise program Short Term Goal (STG) Pt to be independent and ocmpliant with an appropriate HEP STG Duration 12/04/19 Assessment Summary Assessment Reduction in edema noted by patient with treatment, though compliance variable with Tubigrip due to some discomfort. Has further testing scheduled and is working to get appointment to obtain compression sleeve. Good compliance to HEP. Physical Therapy Plan Frequency and Duration Frequency of Treatment 2x/Week Duration of Treatment 10 weeks Plan of Care Start Date 11/04/19 Plan of Care End Date 01/13/20 Therapeutic Interventions Therapeutic Interventions Home Exercise Program,Joint Mobilizations,Manual Therapy, Patient/Caregiver Education, Self-Care/Home Management,Soft Tissue Mobilization, Therapeutic Activities, Therapeutic Exercises Modalities Cold Pack/Ice Massage,Electric Stimulation,Hot Packs, Paraffin Bath,Ultrasound Next Visit Focus/Plan Next Note Type Treatment Note Next Visit Plan Circumferential measurements, continue lymphedema management , strengthening and ROM left UE
--- NOTE | 2019-12-11 12:15 | PT.OTN ---
Current Diagnoses Stiffness of left wrist, not elsewhere classified (12/11/19) Muscle weakness (generalized) (12/11/19) Pain in left arm (12/11/19) Congenital malformation of circulatory system, unspecified (12/11/19) Physical Therapy Treatment Note PT-OP-A Visit Information Start: 11/04/19 17:43 Freq: Status: Active Protocol: Document 12/11/19 12:08 SAK (Rec: 12/11/19 12:15 SAK [id number]) Out-Patient Physical Therapy Visit Information Visit Information Visit Type Treatment Note Visit Start Time 11:20 Visit Stop Time 12:06 Total Visit Minutes 46 Visit Number 7 Number of INFORMATION SPECIALIST Visits 0 Evaluation Information Evaluation Date 11/04/19 PT-OP-B Current Condition Start: 11/04/19 17:43 Freq: Status: Active Protocol: Document 11/04/19 16:00 DCW (Rec: 11/04/19 17:57 DCW [id number]) Current Condition History of Current Condition Onset Date several months Current Complaints Left arm pain, weakness History of Current Condition Pt is a 34 year old female reporting a several month history of left arm pain. 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 Pt reports the pain is worsening, and has started to limit her ability to participate in home and work activities. 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 Pt notes recent increase in dropping items and pain with gripping. Pt reports she has tried a bunch of different meds, none of which seem to help, cold makes it worse. Heat and compression help a little, but not really. Pt is seeing a vascular surgeon on , and she is hopeful this will give her some options to have her malformation corrected. Future Testing and Treatments Planned Vascular surgeon consult Treatment Goals Patient/Caregiver Goals I want to alleviate some of the pain, and improve the strength. PT-OP-C Subjective Start: 11/04/19 17:43 Freq: Status: Active Protocol: Document 12/11/19 12:08 SAK (Rec: 12/11/19 12:15 SAK [id number]) OP-PT Subjective Patient Comments Patient Comments No new c/o. Has only been wearing one layer of Tubigrip, thinks it helps some. PT-OP-F Manual Assessment Start: 11/04/19 17:43 Freq: Status: Active Protocol: Document 11/04/19 16:00 DCW (Rec: 11/05/19 12:50 DCW [id number]) Manual Assessments Soft Tissue Assessment Soft Tissue Mobility Assessment Tenderness to palpation 3/4: Wincing and withdraw along entirety of arm from left elbow distally to MCP joints. Hypertonia in forearm. Edema and varicose veins along distal forearm Joint Mobility Assessment Joint Mobility Assessment Wrist stiffness secondary to pain PT-OP-J Posture/Palpation/Skin Start: 11/04/19 17:43 Freq: Status: Active Protocol: Document 11/04/19 16:00 DCW (Rec: 11/05/19 12:50 DCW [id number]) Skin Assessment Circumference Measurement 3 Location 5 cm Distal to Left wrist joint Measurement (Centimeters) 22.4 Comments 5 cm Distal to Right wrist joint = 22.0 2 Location 5 cm Proximal to Left wrist joint Measurement (Centimeters) 22.0 Comments 5 cm Proximal to Right wrist joint = 20.8 1 Location Left wrist joint Measurement (Centimeters) 17.7 Comments Right wrist joint = 16.5 PT-OP-K Range of Motion Start: 11/04/19 17:43 Freq: Status: Active Protocol: Document 11/04/19 16:00 DCW (Rec: 11/05/19 12:50 DCW [id number]) Elbow/Forearm Range of Motion Elbow/Forearm Left Active Pronation (degrees) 90 Supination (degrees) 30 Wrist Goniometric Range of Motion Wrist Right Flexion Active (degrees) 55 Extension Active (degrees) 60 Ulnar Deviation Active (degrees) 40 Radial Deviation Active (degrees) 25 Left Flexion Active (degrees) 30 Extension Active (degrees) 60 Ulnar Deviation Active (degrees) 30 Radial Deviation Active (degrees) 20 PT-OP-M Strength Start: 11/04/19 17:43 Freq: Status: Active Protocol: Document 11/04/19 16:00 DCW (Rec: 11/05/19 12:50 DCW [id number]) Wrist Strength Wrist Manual Muscle Testing Right Flexion (C7) 5 Normal Extension (C6) 5 Normal Ulnar Deviation 5 Normal Radial Deviation 5 Normal Left Flexion (C7) 3 Fair Extension (C6) 3 Fair Ulnar Deviation 3- Fair- Radial Deviation 3- Fair- Hand Loan Secretary/Pinch Strength Hand Dominance Hand Dominance Right Hand Strength Right Loan Secretary (lbs) 61.7 Comments 3-trial average (60 lbs, 65 lbs, 60 lbs). Left Loan Secretary (lbs) 23.3 Comments 3-trial average (25 lbs, 25 lbs, 20 lbs). PT-OP-N Lymphedema Start: 11/27/19 16:00 Freq: Status: Active Protocol: Document 11/27/19 10:29 [facility] (Rec: 11/27/19 16:05 [facility] [id number]) Lymphedema Measurements Upper Extremity Circumference Measurements Left Affected MCP 18 cm Wrist 18.3 cm 5 cm From Distal Crease 23.5 cm 10 cm From Distal Crease 26 cm 15 cm From Distal Crease 30 cm 20 cm From Distal Crease 30.4 cm 25 cm From Distal Crease 33.3 cm 30 cm From Distal Crease 36.9 cm 35 cm From Distal Crease 39.2 cm 40 cm From Distal Crease 40 cm Right Unaffected MCP 18.3 cm Wrist 17.9 cm 5 cm From Distal Crease 21.5 cm 10 cm From Distal Crease 24.8 cm 15 cm From Distal Crease 29.4 cm 20 cm From Distal Crease 31.1 cm 25 cm From Distal Crease 34.3 cm 30 cm From Distal Crease 37.9 cm 35 cm From Distal Crease 40.2 cm 40 cm From Distal Crease 42.2 cm PT-OP-Q Treatments Start: 11/04/19 17:43 Freq: Status: Active Protocol: Document 12/11/19 12:08 [facility] (Rec: 12/11/19 12:15 [facility] [id number]) Therapeutic Exercises Sitting Exercises 4 Sitting Exercise Name Flexbar - Oscillation Resistance Red 3 Sitting Exercise Name Flexbar - Twist Resistance Red 2 Sitting Exercise Name Flexbar - Flexion Resistance Red wrist flexion/ ext Resistance AROM Reps/Minutes x10 each direction Finger flexion Sitting Exercise Name Didgi-Flex Side left Resistance 5 lbs - Green Comments improved flex 5th digit noted Manual Therapy Treatment Taping 1 Body Location left forearm and hand Treatment Focus edema reduction Type of Tape Kinesio Tape Skin Inspection intact Comments 2 fan strips plus I strip to secure ends. Other Other Manual Treatments circumferential measurements left forearm Self-Care/Home Management Treatment Education Other Education wear the 2 layers of Tubigrip for better sequential compression Lymphedema Treatment Manual Lymphatic Drainage Location left UE Duration 20' Comments patient instruction for self- massage Patient Education Compression Garments importance of 2 layers for sequential compression Self Manual Lymphatic Drainage instructed PT-OP-R Modalities Start: 11/04/19 17:45 Freq: Status: Active Protocol: Document 12/11/19 12:08 [facility] (Rec: 12/11/19 12:15 [facility] [id number]) Paraffin Bath Treatment Left Hand Treatment Technique Dip-immersion Number Wax Layers (layers) 8 Duration (minutes) 10 Patient Tolerance Good PT-OP-T Assessment and Plan Start: 11/04/19 17:43 Freq: Status: Active Protocol: Document 12/11/19 12:08 [facility] (Rec: 12/11/19 12:15 [facility] [id number]) Physical Therapy Assessment Goals Three Impairment Pain of 8/10 causes inablity to participate in 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 LTG Duration 01/04/20 Two Impairment Left it analyst strength (23.3 lbs) significantly less than right (61.7 lbs) Internet Sales Associate Goal (LTG) Increased left it analyst strength to a three trial average of > 45 lbs to ensure pt's ability to picj up household items without dropping them LTG Duration 01/04/20 One Impairment Pt does not have an appropriate home exercise program Short Term Goal (STG) Pt to be independent and ocmpliant with an appropriate HEP STG Duration 12/04/19 Assessment Summary Assessment Patient measured after paraffin dip treatment, will need to measure prior next session. Measurements revealed increased circumference lower arm, decreased above elbow; feel due to lack of sequential compression with patient instructed to wear second layer Tubigrip hand to elbow. Patient demonstrated good understnding of self-MLD. Physical Therapy Plan Frequency and Duration Frequency of Treatment 2x/Week Duration of Treatment 10 weeks Plan of Care Start Date 11/04/19 Plan of Care End Date 01/13/20 Therapeutic Interventions Therapeutic Interventions Home Exercise Program,Joint Mobilizations,Manual Therapy, Patient/Caregiver Education, Self-Care/Home Management,Soft Tissue Mobilization, Therapeutic Activities, Therapeutic Exercises Modalities Cold Pack/Ice Massage,Electric Stimulation,Hot Packs, Paraffin Bath,Ultrasound Next Visit Focus/Plan Next Note Type Treatment Note Next Visit Plan Circumferential measurements prior to paraffin treatment, review self-MLD, continue lymphedema management, strengthening and ROM left UE.
--- NOTE | 2019-12-16 15:03 | PT-OP ANOTE ---
Pt did not show for today's appt, left message regarding missing and reminded of next appt .
--- NOTE | 2019-12-18 16:44 | PT.OTN ---
Current Diagnoses Stiffness of left wrist, not elsewhere classified (12/18/19) Muscle weakness (generalized) (12/18/19) Pain in left arm (12/18/19) Congenital malformation of circulatory system, unspecified (12/18/19) Physical Therapy Treatment Note PT-OP-A Visit Information Start: 11/04/19 17:43 Freq: Status: Active Protocol: Document 12/18/19 16:00 DCW (Rec: 12/18/19 16:44 DCW [id number]) Out-Patient Physical Therapy Visit Information Visit Information Visit Type Treatment Note Visit Start Time 16:00 Visit Stop Time 16:50 Total Visit Minutes 50 Visit Number 8 Number of COMMUNICATION SKILLS INSTRUCTOR Visits 0 Evaluation Information Evaluation Date 11/04/19 PT-OP-B Current Condition Start: 11/04/19 17:43 Freq: Status: Active Protocol: Document 11/04/19 16:00 DCW (Rec: 11/04/19 17:57 DCW [id number]) Current Condition History of Current Condition Onset Date several months Current Complaints Left arm pain, weakness History of Current Condition Pt is a 34 year old female reporting a several month history of left arm pain. 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 Pt reports the pain is worsening, and has started to limit her ability to participate in home and work activities. 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 Pt notes recent increase in dropping items and pain with gripping. Pt reports she has tried a bunch of different meds, none of which seem to help, cold makes it worse. Heat and compression help a little, but not really. Pt is seeing a vascular surgeon on , and she is hopeful this will give her some options to have her malformation corrected. Future Testing and Treatments Planned Vascular surgeon consult Treatment Goals Patient/Caregiver Goals I want to alleviate some of the pain, and improve the strength. PT-OP-C Subjective Start: 11/04/19 17:43 Freq: Status: Active Protocol: Document 12/18/19 16:00 DCW (Rec: 12/18/19 16:44 DCW [id number]) OP-PT Subjective Patient Comments Patient Comments Notes she is sore today, just kind of the same soreness as usual, somedays are just worse than others. Notes she had a Contrast MRI in [place] on Monday, but does not know any results yet. Does notes that when the K-tape comes off, it causes increased pain and pulls her skin off. PT-OP-F Manual Assessment Start: 11/04/19 17:43 Freq: Status: Active Protocol: Document 11/04/19 16:00 DCW (Rec: 11/05/19 12:50 DCW [id number]) Manual Assessments Soft Tissue Assessment Soft Tissue Mobility Assessment Tenderness to palpation 3/4: Wincing and withdraw along entirety of arm from left elbow distally to MCP joints. Hypertonia in forearm. Edema and varicose veins along distal forearm Joint Mobility Assessment Joint Mobility Assessment Wrist stiffness secondary to pain PT-OP-J Posture/Palpation/Skin Start: 11/04/19 17:43 Freq: Status: Active Protocol: Document 11/04/19 16:00 DCW (Rec: 11/05/19 12:50 DCW [id number]) Skin Assessment Circumference Measurement 3 Location 5 cm Distal to Left wrist joint Measurement (Centimeters) 22.4 Comments 5 cm Distal to Right wrist joint = 22.0 2 Location 5 cm Proximal to Left wrist joint Measurement (Centimeters) 22.0 Comments 5 cm Proximal to Right wrist joint = 20.8 1 Location Left wrist joint Measurement (Centimeters) 17.7 Comments Right wrist joint = 16.5 PT-OP-K Range of Motion Start: 11/04/19 17:43 Freq: Status: Active Protocol: Document 11/04/19 16:00 DCW (Rec: 11/05/19 12:50 DCW [id number]) Elbow/Forearm Range of Motion Elbow/Forearm Left Active Pronation (degrees) 90 Supination (degrees) 30 Wrist Goniometric Range of Motion Wrist Right Flexion Active (degrees) 55 Extension Active (degrees) 60 Ulnar Deviation Active (degrees) 40 Radial Deviation Active (degrees) 25 Left Flexion Active (degrees) 30 Extension Active (degrees) 60 Ulnar Deviation Active (degrees) 30 Radial Deviation Active (degrees) 20 PT-OP-M Strength Start: 11/04/19 17:43 Freq: Status: Active Protocol: Document 11/04/19 16:00 DCW (Rec: 11/05/19 12:50 DCW [id number]) Wrist Strength Wrist Manual Muscle Testing Right Flexion (C7) 5 Normal Extension (C6) 5 Normal Ulnar Deviation 5 Normal Radial Deviation 5 Normal Left Flexion (C7) 3 Fair Extension (C6) 3 Fair Ulnar Deviation 3- Fair- Radial Deviation 3- Fair- Hand Test Design Engineer/Pinch Strength Hand Dominance Hand Dominance Right Hand Strength Right Test Design Engineer (lbs) 61.7 Comments 3-trial average (60 lbs, 65 lbs, 60 lbs). Left Test Design Engineer (lbs) 23.3 Comments 3-trial average (25 lbs, 25 lbs, 20 lbs). PT-OP-N Lymphedema Start: 11/27/19 16:00 Freq: Status: Active Protocol: Document 11/27/19 10:29 [facility] (Rec: 11/27/19 16:05 SAK [id number]) Lymphedema Measurements Upper Extremity Circumference Measurements Left Affected MCP 18 cm Wrist 18.3 cm 5 cm From Distal Crease 23.5 cm 10 cm From Distal Crease 26 cm 15 cm From Distal Crease 30 cm 20 cm From Distal Crease 30.4 cm 25 cm From Distal Crease 33.3 cm 30 cm From Distal Crease 36.9 cm 35 cm From Distal Crease 39.2 cm 40 cm From Distal Crease 40 cm Right Unaffected MCP 18.3 cm Wrist 17.9 cm 5 cm From Distal Crease 21.5 cm 10 cm From Distal Crease 24.8 cm 15 cm From Distal Crease 29.4 cm 20 cm From Distal Crease 31.1 cm 25 cm From Distal Crease 34.3 cm 30 cm From Distal Crease 37.9 cm 35 cm From Distal Crease 40.2 cm 40 cm From Distal Crease 42.2 cm PT-OP-Q Treatments Start: 11/04/19 17:43 Freq: Status: Active Protocol: Document 12/18/19 16:00 DCW (Rec: 12/18/19 16:44 DCW [id number]) Therapeutic Exercises Sitting Exercises 6 Sitting Exercise Name Ulnar/Radial Deviation Equipment Used Hammer 5 Sitting Exercise Name pron/sup Equipment Used Hammer 4 Sitting Exercise Name Flexbar - Oscillation Resistance Red 3 Sitting Exercise Name Flexbar - Twist Resistance Red 2 Sitting Exercise Name Flexbar - Flexion Resistance Red Finger flexion Sitting Exercise Name Didgi-Flex Side left Resistance 5 lbs - Green Comments improved flex 5th digit noted Manual Therapy Treatment Joint Mobilizations carpal, MTP, IT, DIP Joint L MTP 1-5, carpals, distal radius & ulna Direction AP, PA, rotation Grade I Body Position seated Comments gentle ROM PT-OP-R Modalities Start: 11/04/19 17:45 Freq: Status: Active Protocol: Document 12/18/19 16:00 DCW (Rec: 12/18/19 16:44 DCW [id number]) Paraffin Bath Treatment Left Hand Treatment Technique Dip-immersion Number Wax Layers (layers) 8 Duration (minutes) 10 Patient Tolerance Good PT-OP-T Assessment and Plan Start: 11/04/19 17:43 Freq: Status: Active Protocol: Document 12/18/19 16:00 DCW (Rec: 12/18/19 16:44 DCW [id number]) Physical Therapy Assessment Goals Three Impairment Pain of 8/10 causes inablity to 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 LTG Duration 01/04/20 Two Impairment Left log yard manager strength (23.3 lbs) significantly less than right (61.7 lbs) Detention Goal (LTG) Increased left log yard manager strength to a three trial average of > 45 lbs to ensure pt's ability to picj up household items without dropping them LTG Duration 01/04/20 One Impairment Pt does not have an appropriate home exercise program Short Term Goal (STG) Pt to be independent and ocmpliant with an appropriate HEP STG Duration 12/04/19 Assessment Summary Assessment Pt overall showing some improvement with strength and mobility, but still has days of varying pain. Will hopefully continue to improve while also going through planning with vascular surgeon . Physical Therapy Plan Frequency and Duration Frequency of Treatment 2x/Week Duration of Treatment 10 weeks Plan of Care Start Date 11/04/19 Plan of Care End Date 01/13/20 Therapeutic Interventions Therapeutic Interventions Home Exercise Program,Joint Mobilizations,Manual Therapy, Patient/Caregiver Education, Self-Care/Home Management,Soft Tissue Mobilization, Therapeutic Activities, Therapeutic Exercises Modalities Cold Pack/Ice Massage,Electric Stimulation,Hot Packs, Paraffin Bath,Ultrasound Next Visit Focus/Plan Next Note Type Treatment Note Next Visit Plan Circumferential measurements prior to paraffin treatment, review self-MLD, continue lymphedema management, strengthening and ROM left UE.
--- NOTE | 2019-12-23 16:41 | PT.OTN ---
Current Diagnoses Stiffness of left wrist, not elsewhere classified (12/23/19) Muscle weakness (generalized) (12/23/19) Pain in left arm (12/23/19) Congenital malformation of circulatory system, unspecified (12/23/19) Physical Therapy Treatment Note PT-OP-A Visit Information Start: 11/04/19 17:43 Freq: Status: Active Protocol: Document 12/23/19 16:00 DCW (Rec: 12/23/19 16:41 DCW [id number]) Out-Patient Physical Therapy Visit Information Visit Information Visit Type Treatment Note Visit Start Time 16:00 Visit Stop Time 16:50 Total Visit Minutes 50 Visit Number 9 Number of SPECIAL EDUCATION SCIENCE TEACHER Visits 0 Evaluation Information Evaluation Date 11/04/19 PT-OP-B Current Condition Start: 11/04/19 17:43 Freq: Status: Active Protocol: Document 11/04/19 16:00 DCW (Rec: 11/04/19 17:57 DCW [id number]) Current Condition History of Current Condition Onset Date several months Current Complaints Left arm pain, weakness History of Current Condition Pt is a 34 year old female reporting a several month history of left arm pain. 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 Pt reports the pain is worsening, and has started to limit her ability to participate in home and work activities. 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 Pt notes recent increase in dropping items and pain with gripping. Pt reports she has tried a bunch of different meds, none of which seem to help, cold makes it worse. Heat and compression help a little, but not really. Pt is seeing a vascular surgeon on , and she is hopeful this will give her some options to have her malformation corrected. Future Testing and Treatments Planned Vascular surgeon consult Treatment Goals Patient/Caregiver Goals I want to alleviate some of the pain, and improve the strength. PT-OP-C Subjective Start: 11/04/19 17:43 Freq: Status: Active Protocol: Document 12/23/19 16:00 DCW (Rec: 12/23/19 16:41 DCW [id number]) OP-PT Subjective Patient Comments Patient Comments No change one way or the other . PT-OP-F Manual Assessment Start: 11/04/19 17:43 Freq: Status: Active Protocol: Document 11/04/19 16:00 DCW (Rec: 11/05/19 12:50 DCW [id number]) Manual Assessments Soft Tissue Assessment Soft Tissue Mobility Assessment Tenderness to palpation 3/4: Wincing and withdraw along entirety of arm from left elbow distally to MCP joints. Hypertonia in forearm. Edema and varicose veins along distal forearm Joint Mobility Assessment Joint Mobility Assessment Wrist stiffness secondary to pain PT-OP-J Posture/Palpation/Skin Start: 11/04/19 17:43 Freq: Status: Active Protocol: Document 11/04/19 16:00 DCW (Rec: 11/05/19 12:50 DCW [id number]) Skin Assessment Circumference Measurement 3 Location 5 cm Distal to Left wrist joint Measurement (Centimeters) 22.4 Comments 5 cm Distal to Right wrist joint = 22.0 2 Location 5 cm Proximal to Left wrist joint Measurement (Centimeters) 22.0 Comments 5 cm Proximal to Right wrist joint = 20.8 1 Location Left wrist joint Measurement (Centimeters) 17.7 Comments Right wrist joint = 16.5 PT-OP-K Range of Motion Start: 11/04/19 17:43 Freq: Status: Active Protocol: Document 11/04/19 16:00 DCW (Rec: 11/05/19 12:50 DCW [id number]) Elbow/Forearm Range of Motion Elbow/Forearm Left Active Pronation (degrees) 90 Supination (degrees) 30 Wrist Goniometric Range of Motion Wrist Right Flexion Active (degrees) 55 Extension Active (degrees) 60 Ulnar Deviation Active (degrees) 40 Radial Deviation Active (degrees) 25 Left Flexion Active (degrees) 30 Extension Active (degrees) 60 Ulnar Deviation Active (degrees) 30 Radial Deviation Active (degrees) 20 PT-OP-M Strength Start: 11/04/19 17:43 Freq: Status: Active Protocol: Document 11/04/19 16:00 DCW (Rec: 11/05/19 12:50 DCW [id number]) Wrist Strength Wrist Manual Muscle Testing Right Flexion (C7) 5 Normal Extension (C6) 5 Normal Ulnar Deviation 5 Normal Radial Deviation 5 Normal Left Flexion (C7) 3 Fair Extension (C6) 3 Fair Ulnar Deviation 3- Fair- Radial Deviation 3- Fair- Hand Beauty Specialist/Pinch Strength Hand Dominance Hand Dominance Right Hand Strength Right Beauty Specialist (lbs) 61.7 Comments 3-trial average (60 lbs, 65 lbs, 60 lbs). Left Beauty Specialist (lbs) 23.3 Comments 3-trial average (25 lbs, 25 lbs, 20 lbs). PT-OP-N Lymphedema Start: 11/27/19 16:00 Freq: Status: Active Protocol: Document 11/27/19 10:29 SAK (Rec: 11/27/19 16:05 SAK [id number]) Lymphedema Measurements Upper Extremity Circumference Measurements Left Affected MCP 18 cm Wrist 18.3 cm 5 cm From Distal Crease 23.5 cm 10 cm From Distal Crease 26 cm 15 cm From Distal Crease 30 cm 20 cm From Distal Crease 30.4 cm 25 cm From Distal Crease 33.3 cm 30 cm From Distal Crease 36.9 cm 35 cm From Distal Crease 39.2 cm 40 cm From Distal Crease 40 cm Right Unaffected MCP 18.3 cm Wrist 17.9 cm 5 cm From Distal Crease 21.5 cm 10 cm From Distal Crease 24.8 cm 15 cm From Distal Crease 29.4 cm 20 cm From Distal Crease 31.1 cm 25 cm From Distal Crease 34.3 cm 30 cm From Distal Crease 37.9 cm 35 cm From Distal Crease 40.2 cm 40 cm From Distal Crease 42.2 cm PT-OP-Q Treatments Start: 11/04/19 17:43 Freq: Status: Active Protocol: Document 12/23/19 16:00 DCW (Rec: 12/23/19 16:41 DCW [id number]) Therapeutic Exercises Sitting Exercises 6 Sitting Exercise Name Ulnar/Radial Deviation Equipment Used Hammer 5 Sitting Exercise Name pron/sup Equipment Used Hammer 4 Sitting Exercise Name Flexbar - Oscillation Resistance Red 3 Sitting Exercise Name Flexbar - Twist Resistance Red 2 Sitting Exercise Name Flexbar - Flexion Resistance Red Finger flexion Sitting Exercise Name Didgi-Flex Side left Resistance 5 lbs - Green Comments improved flex 5th digit noted 1 Sitting Exercise Name Finger flexion - weighted towel pull Side left Resistance 2#->7# Manual Therapy Treatment Joint Mobilizations carpal, MTP, IT, DIP Joint L MTP 1-5, carpals, distal radius & ulna Direction AP, PA, rotation Grade I Body Position seated Comments gentle ROM PT-OP-R Modalities Start: 11/04/19 17:45 Freq: Status: Active Protocol: Document 12/23/19 16:00 DCW (Rec: 12/23/19 16:41 DCW [id number]) Paraffin Bath Treatment Left Hand Treatment Technique Dip-immersion Number Wax Layers (layers) 8 Duration (minutes) 10 Patient Tolerance Good PT-OP-T Assessment and Plan Start: 11/04/19 17:43 Freq: Status: Active Protocol: Document 12/23/19 16:00 DCW (Rec: 12/23/19 16:41 DCW [id number]) Physical Therapy Assessment Goals Three Impairment Pain of 8/10 causes inablity to participate in 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 LTG Duration 01/04/20 Two Impairment Left fur blender strength (23.3 lbs) significantly less than right (61.7 lbs) Java Flex Developer Goal (LTG) Increased left fur blender strength to a three trial average of > 45 lbs to ensure pt's ability to picj up household items without dropping them LTG Duration 01/04/20 One Impairment Pt does not have an appropriate home exercise program Short Term Goal (STG) Pt to be independent and compliant with an appropriate HEP STG Duration 12/04/19 Assessment Summary Assessment Pt has been working on strengthening, reports improved fur blender and mobility, but pain continues with minimal change. Physical Therapy Plan Frequency and Duration Frequency of Treatment 2x/Week Duration of Treatment 10 weeks Plan of Care Start Date 11/04/19 Plan of Care End Date 01/13/20 Therapeutic Interventions Therapeutic Interventions Home Exercise Program,Joint Mobilizations,Manual Therapy, Patient/Caregiver Education, Self-Care/Home Management,Soft Tissue Mobilization, Therapeutic Activities, Therapeutic Exercises Modalities Cold Pack/Ice Massage,Electric Stimulation,Hot Packs, Paraffin Bath,Ultrasound Next Visit Focus/Plan Next Note Type Treatment Note Next Visit Plan Circumferential measurements prior to paraffin treatment, review self-MLD, continue lymphedema management, strengthening and ROM left UE.
--- NOTE | 2019-12-25 12:13 | PT.OTN ---
Current Diagnoses Stiffness of left wrist, not elsewhere classified (12/25/19) Muscle weakness (generalized) (12/25/19) Pain in left arm (12/25/19) Congenital malformation of circulatory system, unspecified (12/25/19) Physical Therapy Treatment Note PT-OP-A Visit Information Start: 11/04/19 17:43 Freq: Status: Active Protocol: Document 12/25/19 11:12 SAK (Rec: 12/25/19 11:20 SAK [id number]) Out-Patient Physical Therapy Visit Information Visit Information Visit Type Treatment Note Visit Start Time 11:14 Visit Stop Time 11:55 Total Visit Minutes 41 Visit Number 10 Number of ANGIOGRAPHY TECHNOLOGIST Visits 0 PT-OP-B Current Condition Start: 11/04/19 17:43 Freq: Status: Active Protocol: Document 11/04/19 16:00 DCW (Rec: 11/04/19 17:57 DCW [id number]) Current Condition History of Current Condition Onset Date several months Current Complaints Left arm pain, weakness History of Current Condition Pt is a 34 year old female reporting a several month history of left arm pain. 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 Pt reports the pain is worsening, and has started to limit her ability to participate in home and work activities. 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 Pt notes recent increase in dropping items and pain with gripping. Pt reports she has tried a bunch of different meds, none of which seem to help, cold makes it worse. Heat and compression help a little, but not really. Pt is seeing a vascular surgeon on , and she is hopeful this will give her some options to have her malformation corrected. Future Testing and Treatments Planned Vascular surgeon consult Treatment Goals Patient/Caregiver Goals I want to alleviate some of the pain, and improve the strength. PT-OP-C Subjective Start: 11/04/19 17:43 Freq: Status: Active Protocol: Document 12/25/19 11:12 SAK (Rec: 12/25/19 11:20 SAK [id number]) OP-PT Subjective Patient Comments Patient Comments 01/03/20 sees doctor for follow up after contrast MRI. Reports still trying to see if insurance will cover compression sleeve. Continues to wear double layer Tubigrip as well as chip bag for left UE compression; less pain with compression sometimes as low as 4/10, but increases as high as 6-8/10. PT-OP-F Manual Assessment Start: 11/04/19 17:43 Freq: Status: Active Protocol: Document 11/04/19 16:00 DCW (Rec: 11/05/19 12:50 DCW [id number]) Manual Assessments Soft Tissue Assessment Soft Tissue Mobility Assessment Tenderness to palpation 3/4: Wincing and withdraw along entirety of arm from left elbow distally to MCP joints. Hypertonia in forearm. Edema and varicose veins along distal forearm Joint Mobility Assessment Joint Mobility Assessment Wrist stiffness secondary to pain PT-OP-J Posture/Palpation/Skin Start: 11/04/19 17:43 Freq: Status: Active Protocol: Document 11/04/19 16:00 DCW (Rec: 11/05/19 12:50 DCW [id number]) Skin Assessment Circumference Measurement 3 Location 5 cm Distal to Left wrist joint Measurement (Centimeters) 22.4 Comments 5 cm Distal to Right wrist joint = 22.0 2 Location 5 cm Proximal to Left wrist joint Measurement (Centimeters) 22.0 Comments 5 cm Proximal to Right wrist joint = 20.8 1 Location Left wrist joint Measurement (Centimeters) 17.7 Comments Right wrist joint = 16.5 PT-OP-K Range of Motion Start: 11/04/19 17:43 Freq: Status: Active Protocol: Document 12/25/19 11:12 [facility] (Rec: 12/25/19 12:11 [facility] [id number]) Elbow/Forearm Range of Motion Elbow/Forearm Left Active Pronation (degrees) 90 Supination (degrees) 40 Wrist Goniometric Range of Motion Wrist Left Flexion Active (degrees) 40 Extension Active (degrees) 60 Ulnar Deviation Active (degrees) 35 Radial Deviation Active (degrees) 20 PT-OP-M Strength Start: 11/04/19 17:43 Freq: Status: Active Protocol: Document 12/25/19 11:12 SAK (Rec: 12/25/19 12:11 SAK [id number]) Wrist Strength Wrist Manual Muscle Testing Left Flexion (C7) 3+ Fair+ Extension (C6) 3+ Fair+ Ulnar Deviation 3 Fair Radial Deviation 3 Fair Hand Account Support Analyst/Pinch Strength Hand Strength Left Account Support Analyst (lbs) 28.0 Comments 3-trial average 42 lbs, 22 lbs , 20 lbs). PT-OP-N Lymphedema Start: 11/27/19 16:00 Freq: Status: Active Protocol: Document 11/27/19 10:29 [facility] (Rec: 11/27/19 16:05 SAK [id number]) Lymphedema Measurements Upper Extremity Circumference Measurements Left Affected MCP 18 cm Wrist 18.3 cm 5 cm From Distal Crease 23.5 cm 10 cm From Distal Crease 26 cm 15 cm From Distal Crease 30 cm 20 cm From Distal Crease 30.4 cm 25 cm From Distal Crease 33.3 cm 30 cm From Distal Crease 36.9 cm 35 cm From Distal Crease 39.2 cm 40 cm From Distal Crease 40 cm Right Unaffected MCP 18.3 cm Wrist 17.9 cm 5 cm From Distal Crease 21.5 cm 10 cm From Distal Crease 24.8 cm 15 cm From Distal Crease 29.4 cm 20 cm From Distal Crease 31.1 cm 25 cm From Distal Crease 34.3 cm 30 cm From Distal Crease 37.9 cm 35 cm From Distal Crease 40.2 cm 40 cm From Distal Crease 42.2 cm PT-OP-Q Treatments Start: 11/04/19 17:43 Freq: Status: Active Protocol: Document 12/23/19 16:00 DCW (Rec: 12/23/19 16:41 DCW [id number]) Therapeutic Exercises Sitting Exercises 6 Sitting Exercise Name Ulnar/Radial Deviation Equipment Used Hammer 5 Sitting Exercise Name pron/sup Equipment Used Hammer 4 Sitting Exercise Name Flexbar - Oscillation Resistance Red 3 Sitting Exercise Name Flexbar - Twist Resistance Red 2 Sitting Exercise Name Flexbar - Flexion Resistance Red Finger flexion Sitting Exercise Name Didgi-Flex Side left Resistance 5 lbs - Green Comments improved flex 5th digit noted 1 Sitting Exercise Name Finger flexion - weighted towel pull Side left Resistance 2#->7# Manual Therapy Treatment Joint Mobilizations carpal, MTP, IT, DIP Joint L MTP 1-5, carpals, distal radius & ulna Direction AP, PA, rotation Grade I Body Position seated Comments gentle ROM PT-OP-R Modalities Start: 11/04/19 17:45 Freq: Status: Active Protocol: Document 12/23/19 16:00 DCW (Rec: 12/23/19 16:41 DCW [id number]) Paraffin Bath Treatment Left Hand Treatment Technique Dip-immersion Number Wax Layers (layers) 8 Duration (minutes) 10 Patient Tolerance Good PT-OP-T Assessment and Plan Start: 11/04/19 17:43 Freq: Status: Active Protocol: Document 12/25/19 11:12 SAK (Rec: 12/25/19 11:20 SAK [id number]) Physical Therapy Assessment Goals Three Impairment Pain of 8/10 causes 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 12/25/19: goal progress but pain persists. LTG Duration 01/04/20 Two Impairment Left real estate closing coordinator strength (23.3 lbs) significantly less than right (61.7 lbs) Food And Beverage Assistant Manager Goal (LTG) Increased left real estate closing coordinator strength to a three trial average of > 45 lbs to ensure pt's ability to picj up household items without dropping them 12/25/19: three trial average real estate closing coordinator strength 28 lbs, goal progress with reports of decreased dropping of objects LTG Duration 01/04/20 One Impairment Pt does not have an appropriate home exercise program Short Term Goal (STG) Pt to be independent and ocmpliant with an appropriate HEP 12/25/19: patient compliant with HEP, continue to progress HEP but mostly met. STG Duration 12/04/19 Assessment Summary Assessment Improvement noted in real estate closing coordinator strength, wrist strength. Some decreased pain with use of Tubigrip, but would benefit more from use of compression sleeve; no appointment yet due to refusal of insurance company to cover a compression sleeve. Patient follow-up with physician 01/03/20. Physical Therapy Plan Frequency and Duration Frequency of Treatment 2x/Week Duration of Treatment 10 weeks Plan of Care Start Date 11/04/19 Plan of Care End Date 01/13/20 Therapeutic Interventions Therapeutic Interventions Home Exercise Program,Joint Mobilizations,Manual Therapy, Patient/Caregiver Education, Self-Care/Home Management,Soft Tissue Mobilization, Therapeutic Activities, Therapeutic Exercises Modalities Cold Pack/Ice Massage,Electric Stimulation,Hot Packs, Paraffin Bath,Ultrasound Next Visit Focus/Plan Next Note Type Treatment Note Next Visit Plan Continue PT per POC for lymphedema and pain management , strengthening, ROM. MLD.
--- NOTE | 2019-12-30 14:45 | PT-OP ANOTE ---
Pt did not show for today's appt, left a message regarding miss and reminded of next appt on 01/01/20 with SIRI Mistry.
--- NOTE | 2020-01-01 16:45 | PT.OTN ---
Current Diagnoses Stiffness of left wrist, not elsewhere classified (01/01/20) Muscle weakness (generalized) (01/01/20) Pain in left arm (01/01/20) Congenital malformation of circulatory system, unspecified (01/01/20) Physical Therapy Treatment Note PT-OP-A Visit Information Start: 11/04/19 17:43 Freq: Status: Active Protocol: Document 01/01/20 16:00 DCW (Rec: 01/01/20 16:45 DCW [id number]) Out-Patient Physical Therapy Visit Information Visit Information Visit Type Treatment Note Visit Start Time 16:00 Visit Stop Time 16:45 Total Visit Minutes 45 Visit Number 11 Number of BIAS MACHINE OPERATOR HELPER Visits 0 Evaluation Information Evaluation Date 11/04/19 PT-OP-B Current Condition Start: 11/04/19 17:43 Freq: Status: Active Protocol: Document 11/04/19 16:00 DCW (Rec: 11/04/19 17:57 DCW [id number]) Current Condition History of Current Condition Onset Date several months Current Complaints Left arm pain, weakness History of Current Condition Pt is a 34 year old female reporting a several month history of left arm pain. 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 Pt reports the pain is worsening, and has started to limit her ability to participate in home and work activities. 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 Pt notes recent increase in dropping items and pain with gripping. Pt reports she has tried a bunch of different meds, none of which seem to help, cold makes it worse. Heat and compression help a little, but not really. Pt is seeing a vascular surgeon on , and she is hopeful this will give her some options to have her malformation corrected. Future Testing and Treatments Planned Vascular surgeon consult Treatment Goals Patient/Caregiver Goals I want to alleviate some of the pain, and improve the strength. PT-OP-C Subjective Start: 11/04/19 17:43 Freq: Status: Active Protocol: Document 01/01/20 16:00 DCW (Rec: 01/01/20 16:45 DCW [id number]) OP-PT Subjective Patient Comments Patient Comments Pt reports overall she is about the same. Hopeful she will be able to get answers at her appointment in [place] Monday PT-OP-F Manual Assessment Start: 11/04/19 17:43 Freq: Status: Active Protocol: Document 11/04/19 16:00 DCW (Rec: 11/05/19 12:50 DCW [id number]) Manual Assessments Soft Tissue Assessment Soft Tissue Mobility Assessment Tenderness to palpation 3/4: Wincing and withdraw along entirety of arm from left elbow distally to MCP joints. Hypertonia in forearm. Edema and varicose veins along distal forearm Joint Mobility Assessment Joint Mobility Assessment Wrist stiffness secondary to pain PT-OP-J Posture/Palpation/Skin Start: 11/04/19 17:43 Freq: Status: Active Protocol: Document 11/04/19 16:00 DCW (Rec: 11/05/19 12:50 DCW [id number]) Skin Assessment Circumference Measurement 3 Location 5 cm Distal to Left wrist joint Measurement (Centimeters) 22.4 Comments 5 cm Distal to Right wrist joint = 22.0 2 Location 5 cm Proximal to Left wrist joint Measurement (Centimeters) 22.0 Comments 5 cm Proximal to Right wrist joint = 20.8 1 Location Left wrist joint Measurement (Centimeters) 17.7 Comments Right wrist joint = 16.5 PT-OP-K Range of Motion Start: 11/04/19 17:43 Freq: Status: Active Protocol: Document 12/25/19 11:[address] [facility] (Rec: 12/25/19 12:[address] [facility] [id number]) Elbow/Forearm Range of Motion Elbow/Forearm Left Active Pronation (degrees) 90 Supination (degrees) 40 Wrist Goniometric Range of Motion Wrist Left Flexion Active (degrees) 40 Extension Active (degrees) 60 Ulnar Deviation Active (degrees) 35 Radial Deviation Active (degrees) 20 PT-OP-M Strength Start: 11/04/19 17:43 Freq: Status: Active Protocol: Document 12/25/19 11:12 [facility] (Rec: 12/25/19 12:[address] [facility] [id number]) Wrist Strength Wrist Manual Muscle Testing Left Flexion (C7) 3+ Fair+ Extension (C6) 3+ Fair+ Ulnar Deviation 3 Fair Radial Deviation 3 Fair Hand Director [employer]/Pinch Strength Hand Strength Left [employer] (lbs) 28.0 Comments 3-trial average 42 lbs, 22 lbs , 20 lbs). PT-OP-N Lymphedema Start: 11/27/19 16:00 Freq: Status: Active Protocol: Document 11/27/19 10:29 [facility] (Rec: 11/27/19 16:05 [facility] [id number]) Lymphedema Measurements Upper Extremity Circumference Measurements Left Affected MCP 18 cm Wrist 18.3 cm 5 cm From Distal Crease 23.5 cm 10 cm From Distal Crease 26 cm 15 cm From Distal Crease 30 cm 20 cm From Distal Crease 30.4 cm 25 cm From Distal Crease 33.3 cm 30 cm From Distal Crease 36.9 cm 35 cm From Distal Crease 39.2 cm 40 cm From Distal Crease 40 cm Right Unaffected MCP 18.3 cm Wrist 17.9 cm 5 cm From Distal Crease 21.5 cm 10 cm From Distal Crease 24.8 cm 15 cm From Distal Crease 29.4 cm 20 cm From Distal Crease 31.1 cm 25 cm From Distal Crease 34.3 cm 30 cm From Distal Crease 37.9 cm 35 cm From Distal Crease 40.2 cm 40 cm From Distal Crease 42.2 cm PT-OP-Q Treatments Start: 11/04/19 17:43 Freq: Status: Active Protocol: Document 01/01/20 16:00 DCW (Rec: 01/01/20 16:45 DCW [id number]) Therapeutic Exercises Sitting Exercises 6 Sitting Exercise Name Ulnar/Radial Deviation Equipment Used Hammer 5 Sitting Exercise Name pron/sup Equipment Used Hammer 4 Sitting Exercise Name Flexbar - Oscillation Resistance Red 3 Sitting Exercise Name Flexbar - Twist Resistance Red 2 Sitting Exercise Name Flexbar - Flexion Resistance Red Finger flexion Sitting Exercise Name Didgi-Flex Side left Resistance 5 lbs - Green Comments improved flex 5th digit noted Manual Therapy Treatment Joint Mobilizations carpal, MTP, IT, DIP Joint L MTP 1-5, carpals, distal radius & ulna Direction AP, PA, rotation Grade III Body Position seated Comments gentle ROM PT-OP-R Modalities Start: 11/04/19 17:45 Freq: Status: Active Protocol: Document 01/01/20 16:00 DCW (Rec: 01/01/20 16:45 DCW [id number]) Paraffin Bath Treatment Left Hand Treatment Technique Dip-immersion Number Wax Layers (layers) 8 Duration (minutes) 10 Patient Tolerance Good PT-OP-T Assessment and Plan Start: 11/04/19 17:43 Freq: Status: Active Protocol: Document 01/01/20 16:00 DCW (Rec: 01/01/20 16:45 DCW [id number]) Physical Therapy Assessment Goals Three Impairment Pain of 8/10 causes inablity to participate in 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 12/25/19: goal progress but pain persists. LTG Duration 01/04/20 Two Impairment Left primary montessori teacher strength (23.3 lbs) significantly less than right (61.7 lbs) Knot Cutter Goal (LTG) Increased left primary montessori teacher strength to a three trial average of > 45 lbs to ensure pt's ability to picj up household items without dropping them 12/25/19: three trial average primary montessori teacher strength 28 lbs, goal progress with reports of decreased dropping of objects LTG Duration 01/04/20 One Impairment Pt does not have an appropriate home exercise program Short Term Goal (STG) Pt to be independent and compliant with an appropriate HEP 12/25/19: patient compliant with HEP, continue to progress HEP but mostly met. STG Duration 12/04/19 Assessment Summary Assessment Pt still largely unchanged with subjective pain, has some reports of noticing improved primary montessori teacher strength. Physical Therapy Plan Frequency and Duration Frequency of Treatment 2x/Week Duration of Treatment 10 weeks Plan of Care Start Date 11/04/19 Plan of Care End Date 01/13/20 Therapeutic Interventions Therapeutic Interventions Home Exercise Program,Joint Mobilizations,Manual Therapy, Patient/Caregiver Education, Self-Care/Home Management,Soft Tissue Mobilization, Therapeutic Activities, Therapeutic Exercises Modalities Cold Pack/Ice Massage,Electric Stimulation,Hot Packs, Paraffin Bath,Ultrasound Next Visit Focus/Plan Next Note Type Treatment Note Next Visit Plan Continue PT per POC for lymphedema and pain management , strengthening, ROM. MLD.
--- NOTE | 2020-01-06 16:42 | PT.OTN ---
Current Diagnoses Stiffness of left wrist, not elsewhere classified (01/06/20) Muscle weakness (generalized) (01/06/20) Pain in left arm (01/06/20) Congenital malformation of circulatory system, unspecified (01/06/20) Physical Therapy Treatment Note PT-OP-A Visit Information Start: 11/04/19 17:43 Freq: Status: Active Protocol: Document 01/06/20 16:00 DCW (Rec: 01/06/20 16:42 DCW [id number]) Out-Patient Physical Therapy Visit Information Visit Information Visit Type Treatment Note Visit Start Time 16:00 Visit Stop Time 16:45 Total Visit Minutes 45 Visit Number 12 Number of METAL TESTER Visits 0 Evaluation Information Evaluation Date 11/04/19 PT-OP-B Current Condition Start: 11/04/19 17:43 Freq: Status: Active Protocol: Document 11/04/19 16:00 DCW (Rec: 11/04/19 17:57 DCW [id number]) Current Condition History of Current Condition Onset Date several months Current Complaints Left arm pain, weakness History of Current Condition Pt is a 34 year old female reporting a several month history of left arm pain. 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 Pt reports the pain is worsening, and has started to limit her ability to participate in home and work activities. 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 Pt notes recent increase in dropping items and pain with gripping. Pt reports she has tried a bunch of different meds, none of which seem to help, cold makes it worse. Heat and compression help a little, but not really. Pt is seeing a vascular surgeon on , and she is hopeful this will give her some options to have her malformation corrected. Future Testing and Treatments Planned Vascular surgeon consult Treatment Goals Patient/Caregiver Goals I want to alleviate some of the pain, and improve the strength. PT-OP-C Subjective Start: 11/04/19 17:43 Freq: Status: Active Protocol: Document 01/06/20 16:00 DCW (Rec: 01/06/20 16:42 DCW [id number]) OP-PT Subjective Patient Comments Patient Comments Pt reports the outcome of her appointment down in [place] is that she is going to have alcohol injection to try to shrink the veins. Did have an appointment for this week, but she just got a call to say they were closing for two weeks. PT-OP-F Manual Assessment Start: 11/04/19 17:43 Freq: Status: Active Protocol: Document 11/04/19 16:00 DCW (Rec: 11/05/19 12:50 DCW [id number]) Manual Assessments Soft Tissue Assessment Soft Tissue Mobility Assessment Tenderness to palpation 3/4: Wincing and withdraw along entirety of arm from left elbow distally to MCP joints. Hypertonia in forearm. Edema and varicose veins along distal forearm Joint Mobility Assessment Joint Mobility Assessment Wrist stiffness secondary to pain PT-OP-J Posture/Palpation/Skin Start: 11/04/19 17:43 Freq: Status: Active Protocol: Document 11/04/19 16:00 DCW (Rec: 11/05/19 12:50 DCW [id number]) Skin Assessment Circumference Measurement 3 Location 5 cm Distal to Left wrist joint Measurement (Centimeters) 22.4 Comments 5 cm Distal to Right wrist joint = 22.0 2 Location 5 cm Proximal to Left wrist joint Measurement (Centimeters) 22.0 Comments 5 cm Proximal to Right wrist joint = 20.8 1 Location Left wrist joint Measurement (Centimeters) 17.7 Comments Right wrist joint = 16.5 PT-OP-K Range of Motion Start: 11/04/19 17:43 Freq: Status: Active Protocol: Document 12/25/19 11:12 [facility] (Rec: 12/25/19 12:11 [facility] [id number]) Elbow/Forearm Range of Motion Elbow/Forearm Left Active Pronation (degrees) 90 Supination (degrees) 40 Wrist Goniometric Range of Motion Wrist Left Flexion Active (degrees) 40 Extension Active (degrees) 60 Ulnar Deviation Active (degrees) 35 Radial Deviation Active (degrees) 20 PT-OP-M Strength Start: 11/04/19 17:43 Freq: Status: Active Protocol: Document 12/25/19 11:12 [facility] (Rec: 12/25/19 12:11 [facility] [id number]) Wrist Strength Wrist Manual Muscle Testing Left Flexion (C7) 3+ Fair+ Extension (C6) 3+ Fair+ Ulnar Deviation 3 Fair Radial Deviation 3 Fair Hand Fishing Manager/Pinch Strength Hand Strength Left Fishing Manager (lbs) 28.0 Comments 3-trial average 42 lbs, 22 lbs , 20 lbs). PT-OP-N Lymphedema Start: 11/27/19 16:00 Freq: Status: Active Protocol: Document 11/27/19 10:29 [facility] (Rec: 11/27/19 16:05 [facility]AK [id number]) Lymphedema Measurements Upper Extremity Circumference Measurements Left Affected MCP 18 cm Wrist 18.3 cm 5 cm From Distal Crease 23.5 cm 10 cm From Distal Crease 26 cm 15 cm From Distal Crease 30 cm 20 cm From Distal Crease 30.4 cm 25 cm From Distal Crease 33.3 cm 30 cm From Distal Crease 36.9 cm 35 cm From Distal Crease 39.2 cm 40 cm From Distal Crease 40 cm Right Unaffected MCP 18.3 cm Wrist 17.9 cm 5 cm From Distal Crease 21.5 cm 10 cm From Distal Crease 24.8 cm 15 cm From Distal Crease 29.4 cm 20 cm From Distal Crease 31.1 cm 25 cm From Distal Crease 34.3 cm 30 cm From Distal Crease 37.9 cm 35 cm From Distal Crease 40.2 cm 40 cm From Distal Crease 42.2 cm PT-OP-Q Treatments Start: 11/04/19 17:43 Freq: Status: Active Protocol: Document 01/06/20 16:00 DCW (Rec: 01/06/20 16:42 DCW [id number]) Therapeutic Exercises Sitting Exercises 6 Sitting Exercise Name Ulnar/Radial Deviation Equipment Used Hammer 5 Sitting Exercise Name pron/sup Equipment Used Hammer 4 Sitting Exercise Name Flexbar - Oscillation Resistance Red 3 Sitting Exercise Name Flexbar - Twist Resistance Red 2 Sitting Exercise Name Flexbar - Flexion Resistance Red Finger flexion Sitting Exercise Name Didgi-Flex Side left Resistance 5 lbs - Green Comments improved flex 5th digit noted Manual Therapy Treatment Soft Tissue Mobilization MF glide forearm flex/ ext Body Location superficial glide forearm hand retrograde, CET/ CFT attachment Mobilization Type Cross-Friction,Myofascial Release,Sustained Pressure Intensity/Depth Superficial Body Position Sitting Joint Mobilizations carpal, MTP, IT, DIP Joint L MTP 1-5, carpals, distal radius & ulna Direction AP, PA, rotation Grade III Body Position seated Comments gentle ROM Manual Traction Carpal Details Carpal traction Body Position Sitting PT-OP-R Modalities Start: 11/04/19 17:45 Freq: Status: Active Protocol: Document 01/06/20 16:00 DCW (Rec: 01/06/20 16:42 DCW [id number]) Paraffin Bath Treatment Left Hand Treatment Technique Dip-immersion Number Wax Layers (layers) 8 Duration (minutes) 10 Patient Tolerance Good PT-OP-T Assessment and Plan Start: 11/04/19 17:43 Freq: Status: Active Protocol: Document 01/06/20 16:00 DCW (Rec: 01/06/20 16:42 DCW [id number]) Physical Therapy Assessment Impairments Impairments Activity Tolerance,Functional Activities,Functional Mobility ,Pain,ROM,Soft Tissue Mobility ,Strength Goals Three Impairment Pain of 8/10 causes inablity to 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 12/25/19: goal progress but pain persists. LTG Duration 01/04/20 Two Impairment Left dowel setting machine operator strength (23.3 lbs) significantly less than right (61.7 lbs) Prison Goal (LTG) Increased left dowel setting machine operator strength to a three trial average of > 45 lbs to ensure pt's ability to picj up household items without dropping them 12/25/19: three trial average dowel setting machine operator strength 28 lbs, goal progress with reports of decreased dropping of objects LTG Duration 01/04/20 One Impairment Pt does not have an appropriate home exercise program Short Term Goal (STG) Pt to be independent and ocmpliant with an appropriate HEP 12/25/19: patient compliant with HEP, continue to progress HEP but mostly met. STG Duration 12/04/19 Assessment Summary Assessment Pt more optimistic now with a plan in place for injections and a compression sleeve. Would like to continue with her last scheduled visit with PT, and then see how she does without PT for a few weeks prior to actually discharging. Physical Therapy Plan Frequency and Duration Frequency of Treatment 2x/Week Duration of Treatment 10 weeks Plan of Care Start Date 11/04/19 Plan of Care End Date 01/13/20 Therapeutic Interventions Therapeutic Interventions Home Exercise Program,Joint Mobilizations,Manual Therapy, Patient/Caregiver Education, Self-Care/Home Management,Soft Tissue Mobilization, Therapeutic Activities, Therapeutic Exercises Modalities Cold Pack/Ice Massage,Electric Stimulation,Hot Packs, Paraffin Bath,Ultrasound Next Visit Focus/Plan Next Note Type Treatment Note Next Visit Plan Continue PT per POC for lymphedema and pain management , strengthening, ROM. MLD.
--- NOTE | 2020-01-08 16:23 | PT.OTN ---
Current Diagnoses Stiffness of left wrist, not elsewhere classified (01/08/20) Muscle weakness (generalized) (01/08/20) Pain in left arm (01/08/20) Congenital malformation of circulatory system, unspecified (01/08/20) Physical Therapy Treatment Note PT-OP-A Visit Information Start: 11/04/19 17:43 Freq: Status: Active Protocol: Document 01/08/20 15:16 SAK (Rec: 01/08/20 15:30 SAK [id number]) Out-Patient Physical Therapy Visit Information Visit Information Visit Type Treatment Note Visit Start Time 15:15 Visit Stop Time 16:06 Total Visit Minutes 51 Visit Number 13 Number of ASSISTANT IMPORT MANAGER Visits 0 Evaluation Information Evaluation Date 11/04/19 PT-OP-B Current Condition Start: 11/04/19 17:43 Freq: Status: Active Protocol: Document 11/04/19 16:00 DCW (Rec: 11/04/19 17:57 DCW [id number]) Current Condition History of Current Condition Onset Date several months Current Complaints Left arm pain, weakness History of Current Condition Pt is a 34 year old female reporting a several month history of left arm pain. 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 Pt reports the pain is worsening, and has started to limit her ability to participate in home and work activities. 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 Pt notes recent increase in dropping items and pain with gripping. Pt reports she has tried a bunch of different meds, none of which seem to help, cold makes it worse. Heat and compression help a little, but not really. Pt is seeing a vascular surgeon on , and she is hopeful this will give her some options to have her malformation corrected. Future Testing and Treatments Planned Vascular surgeon consult Treatment Goals Patient/Caregiver Goals I want to alleviate some of the pain, and improve the strength. PT-OP-C Subjective Start: 11/04/19 17:43 Freq: Status: Active Protocol: Document 01/08/20 15:16 SAK (Rec: 01/08/20 15:30 SAK [id number]) OP-PT Subjective Patient Comments Patient Comments Waiting for Yenifer Simmons to open up after 2 weeks to be able to be measured and fit with compression sleeve and gauntlet. Pain level high yesterday. Contintues to wear tubigrip issued by PT, needs some replacement. Receptive to lymphatic massage today. PT-OP-F Manual Assessment Start: 11/04/19 17:43 Freq: Status: Active Protocol: Document 11/04/19 16:00 DCW (Rec: 11/05/19 12:50 DCW [id number]) Manual Assessments Soft Tissue Assessment Soft Tissue Mobility Assessment Tenderness to palpation 3/4: Wincing and withdraw along entirety of arm from left elbow distally to MCP joints. Hypertonia in forearm. Edema and varicose veins along distal forearm Joint Mobility Assessment Joint Mobility Assessment Wrist stiffness secondary to pain PT-OP-J Posture/Palpation/Skin Start: 11/04/19 17:43 Freq: Status: Active Protocol: Document 11/04/19 16:00 DCW (Rec: 11/05/19 12:50 DCW [id number]) Skin Assessment Circumference Measurement 3 Location 5 cm Distal to Left wrist joint Measurement (Centimeters) 22.4 Comments 5 cm Distal to Right wrist joint = 22.0 2 Location 5 cm Proximal to Left wrist joint Measurement (Centimeters) 22.0 Comments 5 cm Proximal to Right wrist joint = 20.8 1 Location Left wrist joint Measurement (Centimeters) 17.7 Comments Right wrist joint = 16.5 PT-OP-K Range of Motion Start: 11/04/19 17:43 Freq: Status: Active Protocol: Document 12/25/19 11:12 [facility] (Rec: 12/25/19 12:11 [facility] [id number]) Elbow/Forearm Range of Motion Elbow/Forearm Left Active Pronation (degrees) 90 Supination (degrees) 40 Wrist Goniometric Range of Motion Wrist Left Flexion Active (degrees) 40 Extension Active (degrees) 60 Ulnar Deviation Active (degrees) 35 Radial Deviation Active (degrees) 20 PT-OP-M Strength Start: 11/04/19 17:43 Freq: Status: Active Protocol: Document 12/25/19 11:12 WILDER (Rec: 12/25/19 12:11 SAK [id number]) Wrist Strength Wrist Manual Muscle Testing Left Flexion (C7) 3+ Fair+ Extension (C6) 3+ Fair+ Ulnar Deviation 3 Fair Radial Deviation 3 Fair Hand Specialized Language Instructor/Pinch Strength Hand Strength Left Specialized Language Instructor (lbs) 28.0 Comments 3-trial average 42 lbs, 22 lbs , 20 lbs). PT-OP-N Lymphedema Start: 11/27/19 16:00 Freq: Status: Active Protocol: Document 01/08/20 15:16 [facility] (Rec: 01/08/20 16:23 [facility] [id number]) Lymphedema Measurements Upper Extremity Circumference Measurements Left Affected MCP 18.3 cm Dorsum of Hand 18.2 cm Wrist 23.2 cm 5 cm From Wrist Crease 25.8 cm 10 cm From Wrist Crease 29.7 cm 15 cm From Wrist Crease 30 cm 20 cm From Wrist Crease 33 cm 25 cm From Wrist Crease 35.7 cm 30 cm From Wrist Crease 38 cm 35 cm From Wrist Crease 39.3 cm PT-OP-Q Treatments Start: 11/04/19 17:43 Freq: Status: Active Protocol: Document 01/08/20 15:16 [facility] (Rec: 01/08/20 16:23 [facility] [id number]) Lymphedema Treatment Manual Lymphatic Drainage Location MLD left UE Duration 30 Lymphedema Wrapping Body Location left UE Materials Tubigrip size E hand to elbow, size F hand to axilla Patient Education Self Manual Lymphatic Drainage reviwed Sequential Lymphedema Exercises reviewed PT-OP-R Modalities Start: 11/04/19 17:45 Freq: Status: Active Protocol: Document 01/08/20 15:16 [facility] (Rec: 01/08/20 16:23 [facility] [id number]) Paraffin Bath Treatment Left Hand Treatment Technique Dip-immersion Number Wax Layers (layers) 8 Duration (minutes) 10 Patient Tolerance Good Comment Treatment Comment decrease in pain PT-OP-T Assessment and Plan Start: 11/04/19 17:43 Freq: Status: Active Protocol: Document 01/08/20 15:16 [facility] (Rec: 01/08/20 16:23 [facility] [id number]) Physical Therapy Assessment Impairments Impairments Activity Tolerance,Functional Activities,Functional Mobility ,Pain,ROM,Soft Tissue Mobility ,Strength Goals Three Impairment Pain of 8/10 causes inablity to participate 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 12/25/19: goal progress but pain persists. LTG Duration 01/04/20 Two Impairment Left web press roll tender strength (23.3 lbs) significantly less than right (61.7 lbs) Cartography Technician Goal (LTG) Increased left web press roll tender strength to a three trial average of > 45 lbs to ensure pt's ability to picj up household items without dropping them 12/25/19: three trial average web press roll tender strength 28 lbs, goal progress with reports of decreased dropping of objects LTG Duration 01/04/20 One Impairment Pt does not have an appropriate home exercise program Short Term Goal (STG) Pt to be independent and ocmpliant with an appropriate HEP 12/25/19: patient compliant with HEP, continue to progress HEP but mostly met. STG Duration 12/04/19 Assessment Summary Assessment Per primary PT, patient to be on hold for PT, to contact us if pain increases. She will continue with HEP, use of Tubigrip,self massage. Plans to be fit with compression sleeve soon and gauntlet when Yenifer Whitfield'maggie opens back up and receive alcohold injections next month. Physical Therapy Plan Frequency and Duration Frequency of Treatment 2x/Week Duration of Treatment 10 weeks Plan of Care Start Date 11/04/19 Plan of Care End Date 01/13/20 Therapeutic Interventions Therapeutic Interventions Home Exercise Program,Joint Mobilizations,Manual Therapy, Patient/Caregiver Education, Self-Care/Home Management,Soft Tissue Mobilization, Therapeutic Activities, Therapeutic Exercises Modalities Cold Pack/Ice Massage,Electric Stimulation,Hot Packs, Paraffin Bath,Ultrasound Hold Physical Therapy Reason For Hold Patient to continue indep as above, await fitting with compression sleeve and injections to see how beneficial.
--- NOTE | 2020-04-02 14:41 | PT.OPDS ---
Current Diagnoses Stiffness of left wrist, not elsewhere classified (01/08/20) Muscle weakness (generalized) (01/08/20) Pain in left arm (01/08/20) Congenital malformation of circulatory system, unspecified (01/08/20) Visit Care Team Role Provider Type KAREN Ely Attending Provider Advanced Combat Engineer Primary Care Provider Referring Provider Specialty: [facility] Address: [address] [place] [address], [facility] Email: [email or web address] Visit Number Visit Number 13 Discharge Summary PT-OP-B Current Condition Start: 11/04/19 17:43 Freq: Status: Active Protocol: Document 11/04/19 16:00 DCW (Rec: 11/04/19 17:57 DCW [id number]) Current Condition History of Current Condition Onset Date several months Current Complaints Left arm pain, weakness History of Current Condition Pt is a 34 year old female reporting a several month history of left arm pain. 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 Pt reports the pain is worsening, and has started to limit her ability to participate in home and work activities. 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 Pt notes recent increase in dropping items and pain with gripping. Pt reports she has tried a bunch of different meds, none of which seem to help, cold makes it worse. Heat and compression help a little, but not really. Pt is seeing a vascular surgeon on , and she is hopeful this will give her some options to have her malformation corrected. Future Testing and Treatments Planned Vascular surgeon consult Treatment Goals Patient/Caregiver Goals I want to alleviate some of the pain, and improve the strength. PT-OP-C Subjective Start: 11/04/19 17:43 Freq: Status: Active Protocol: Document 01/08/20 15:16 SAK (Rec: 01/08/20 15:30 SAK [id number]) OP-PT Subjective Patient Comments Patient Comments Waiting for Yenifer Simmons to open up after 2 weeks to be able to be measured and fit with compression sleeve and gauntlet. Pain level high yesterday. Contintues to wear tubigrip issued by PT, needs some replacement. Receptive to lymphatic massage today. PT-OP-F Manual Assessment Start: 11/04/19 17:43 Freq: Status: Active Protocol: Document 11/04/19 16:00 DCW (Rec: 11/05/19 12:50 DCW [id number]) Manual Assessments Soft Tissue Assessment Soft Tissue Mobility Assessment Tenderness to palpation 3/4: Wincing and withdraw along entirety of arm from left elbow distally to MCP joints. Hypertonia in forearm. Edema and varicose veins along distal forearm Joint Mobility Assessment Joint Mobility Assessment Wrist stiffness secondary to pain PT-OP-J Posture/Palpation/Skin Start: 11/04/19 17:43 Freq: Status: Active Protocol: Document 11/04/19 16:00 DCW (Rec: 11/05/19 12:50 DCW [id number]) Skin Assessment Circumference Measurement 3 Location 5 cm Distal to Left wrist joint Measurement (Centimeters) 22.4 Comments 5 cm Distal to Right wrist joint = 22.0 2 Location 5 cm Proximal to Left wrist joint Measurement (Centimeters) 22.0 Comments 5 cm Proximal to Right wrist joint = 20.8 1 Location Left wrist joint Measurement (Centimeters) 17.7 Comments Right wrist joint = 16.5 PT-OP-K Range of Motion Start: 11/04/19 17:43 Freq: Status: Active Protocol: Document 12/25/19 11:[address] [facility] (Rec: 12/25/19 12:[address] [facility] [id number]) Elbow/Forearm Range of Motion Elbow/Forearm Left Active Pronation (degrees) 90 Supination (degrees) 40 Wrist Goniometric Range of Motion Wrist Left Flexion Active (degrees) 40 Extension Active (degrees) 60 Ulnar Deviation Active (degrees) 35 Radial Deviation Active (degrees) 20 PT-OP-M Strength Start: 11/04/19 17:43 Freq: Status: Active Protocol: Document 12/25/19 11:[address] [facility] (Rec: 12/25/19 12:[address] [facility] [id number]) Wrist Strength Wrist Manual Muscle Testing Left Flexion (C7) 3+ Fair+ Extension (C6) 3+ Fair+ Ulnar Deviation 3 Fair Radial Deviation 3 Fair Hand Job Order Clerk/Pinch Strength Hand Strength Left Job Order Clerk (lbs) 28.0 Comments 3-trial average 42 lbs, 22 lbs , 20 lbs). PT-OP-N Lymphedema Start: 11/27/19 16:00 Freq: Status: Active Protocol: Document 01/08/20 15:16 SAK (Rec: 01/08/20 16:23 SAK [id number]) Lymphedema Measurements Upper Extremity Circumference Measurements Left Affected MCP 18.3 cm Dorsum of Hand 18.2 cm Wrist 23.2 cm 5 cm From Wrist Crease 25.8 cm 10 cm From Wrist Crease 29.7 cm 15 cm From Wrist Crease 30 cm 20 cm From Wrist Crease 33 cm 25 cm From Wrist Crease 35.7 cm 30 cm From Wrist Crease 38 cm 35 cm From Wrist Crease 39.3 cm PT-OP-T Assessment and Plan Start: 11/04/19 17:43 Freq: Status: Active Protocol: Document 04/02/20 14:39 DCW (Rec: 04/02/20 14:41 DCW [id number]) Physical Therapy Assessment Assessment Summary Assessment Plan was for pt to go 2-3 weeks without therapy, see how she felt, and then schedule follow-up if her symptoms worsened again. Pt has not called for any more appointments, and has now not been seen in nearly three months. Pt will be discharged from skilled therapy at this time. Physical Therapy Plan Discharge Physical Therapy Discharge Reasons No Longer Attending PT
== END 2020-04-17 09:57 ==
LOC: PHYS 15:15
PROVIDERS: PCP Nurse Practitioner; Referring Provider Nurse Practitioner; Visit Provider Nurse Practitioner
DX: M79.602 Pain in left arm (principal); Q28.9 Congenital malformation of circulatory system, unspecified; M25.632 Stiffness of left wrist, not elsewhere classified; M62.81 Muscle weakness (generalized)
CPT/HCPCS: 97018; 97110; 97140; 97161; 97535

== ENCOUNTER → 2020-08-20 08:43 | Outpatient (CLI) | payer OTHER, SELFPAY ==
--- NOTE | 2020-08-20 08:44 | DI.MRI.S_ITS ---
PROCEDURE: MR KNEE LT WO CON INDICATIONS: left knee pain TECHNIQUE: Noncontrast sagittal PD fast spin echo and T2 fast spin echo with fat saturation, sagittal 3-D FLASH with fat saturation; coronal T1 spin echo and PD fast spin echo with fat saturation, and axial PD fast spin echo with fat saturation through the knee. COMPARISON: None. FINDINGS: Image quality: Excellent. Menisci: There is mild degenerative signal within the medial and lateral menisci without a discrete tear involving an articular surface. The meniscal root ligaments appear intact. Cruciate ligaments: The anterior and posterior cruciate ligaments appear intact. Medial structures: The medial collateral ligament appears intact. The semimembranosus tendon insertions and meniscocapsular junction appear intact. Visualized portions of the pes anserinus tendons appear intact without associated bursal fluid collections. Lateral structures: The lateral collateral ligament, long and short heads of the biceps femoris tendon appear intact. The popliteus tendon appears intact. Iliotibial band appears normal. Anterior structures: The quadriceps and patellar tendons appear intact. Mild tendinopathy is present within the proximal patellar tendon. There is moderate to severe lateral shift of the patella with moderate lateral tilt. There is lateralization of the tibial tuberosity which is centered approximately 2 cm lateral to the trochlear groove. There is adjacent edema within the superolateral aspect of Hoffa's fat pad. No femoral trochlear dysplasia or ventral trochlear prominence. Bones and cartilage: No bone marrow contusions or fractures. There is moderate cartilage thinning laterally in the patellofemoral compartment with associated chondral fissuring along the lateral patellar facet with underlying subchondral edema. The articular cartilage in the medial compartment demonstrates slight thinning without discrete defects. The cartilage in the lateral compartment appears preserved in thickness. Joint space: There is a small joint effusion. No Rivas's cyst. Normal appearing synovial plicae are incidentally noted. IMPRESSION: 1. Lateralization of the tibial tuberosity with associated moderate to severe lateral shift of the patella and moderate lateral tilt. 2. 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 3. Moderate chondral degeneration in the lateral patellofemoral compartment with associated subchondral edema along the lateral patellar facet. 4. Small joint effusion. Dictated by: Gurpreet Yancey M.D. on 08/20/2020 at 10:23 Approved by: Gurpreet Yancey M.D. on 08/20/2020 at 10:53
== END ==
PROVIDERS: PCP Nurse Practitioner; Referring Provider Nurse Practitioner; Visit Provider Nurse Practitioner
DX: M25.562 Pain in left knee (principal); M25.462 Effusion, left knee
CPT/HCPCS: 73721